=== PATIENT | male | born 1980 | race Caucasian/White ===

== ENCOUNTER 2025-02-24 20:47 | Inpatient (IN) | payer SELFPAY ==
[2025-02-24] VITALS (13 sets, daily range): BP systolic 128–154; BP diastolic 82–93; PULSE 108–126; RESP 15–41; TEMP 36.6–37.8; O2SAT 94–99; BMI 38.2
--- NOTE | 2025-02-24 21:27 | DI.RAD.S_ITS ---
PROCEDURE: XR CHEST 1V INDICATIONS: potential sepsis TECHNIQUE: One view of the chest was acquired. COMPARISON: None. FINDINGS: Surgical changes and devices: None. Lungs and pleura: Lungs are clear. No pleural effusions or pneumothorax. Mediastinum: Mediastinal contours appear normal. Heart size is normal. Bones and chest wall: No suspicious bony lesions. Overlying soft tissues appear unremarkable. IMPRESSION: No acute cardiopulmonary abnormality is seen. Approved by: Viridiana Hogan M.D.,Ph.D. on 02/24/2025 at 23:47
[2025-02-24] MEDS: SODIUM CHLORIDE 0.9% 1451.5 ML IV (21:34)
[2025-02-24 21:36] LABS: Alanine Aminotransferase 32 IU/L (<50); Albumin 3.9 g/dL (3.5-5.0); Albumin Globulin Ratio 0.9 (1.0-2.8); Alkaline Phosphatase 82 U/L (38-126); Blood Urea Nitrogen 9 mg/dL (9-20); Calcium 7.7 mg/dL (8.4-10.2); Carbon Dioxide 18 mmol/L (22-32); Chloride 99 mmol/L (98-107); Estimated Glomerular Filt Rate > 60 mL/min (>60); Globulin 4.3 g/dL (1.7-4.1); Glucose 274 mg/dL (70-99); Potassium 3.9 mmol/L (3.4-5.1); Sodium 134 mmol/L (137-145); Total Protein 8.2 g/dL (6.3-8.2)
[2025-02-24 21:45] LABS: Add Manual Diff / Slide Review NO; Hematocrit 48.1 % (41-53); Hemoglobin 16.2 g/dL (13.5-17.5); Lymphocytes Absolute Auto 1900 /uL (1100-4500); Mean Corpuscular HGB Conc 33.7 % (30-36); Mean Corpuscular Hemoglobin 29.8 PG (26-34); Mean Corpuscular Volume 88.4 fL (80-100); Platelet Count 265 X10^3/uL (150-400)
--- NOTE | 2025-02-24 21:52 | ED_ITS ---
HPI - Abdominal Pain General Chief Complaint: Abdominal Pain Stated Complaint: abd pain, N/V/D Time Seen by Provider: 02/24/25 20:57 Source: patient Mode of arrival: Ambulatory History of Present Illness HPI narrative: 45-year-old male with left upper quadrant pain since yesterday, flu from [place] to visit family here in [facility] yesterday, also recent cough, loose stools, single episode of vomiting, no longer nauseated, no black or red stools. No painful or frequent urination. No exposure to persons with recent upper respiratory or GI symptoms in home misery area. No recent antibiotic exposure. No injury trauma new activities. Related Data Home Medications ?Medication ?Instructions ?Recorded ?Confirmed No Known Home Medications 02/25/2501/15 Allergies Allergy/AdvReac Type Severity Reaction Status Date / Time No Known Drug Allergies Allergy Verified 02/24/25 20:53 Patient History Social History household members: none Smoking Status: Former smoker Smoking Status: Former smoker Exam Narrative Exam Narrative: GENERAL: Well-developed patient, in mild distress. HEAD: Atraumatic. Normocephalic. EYES: Pupils equal round and reactive. Extraocular motions intact. No scleral icterus. No injection or drainage. ENT: Nose without bleeding, purulent drainage. Throat without erythema, tonsillar hypertrophy or exudate. Airway patent. NECK: Trachea midline. Non tender CARDIOVASCULAR: Regular rate and rhythm without murmurs, gallops, or rubs. RESPIRATORY: Clear to auscultation. Breath sounds equal bilaterally. No wheezes, rales, or rhonchi. GASTROINTESTINAL: Abdomen soft, non-tender, nondistended. EXTREMITIES: No edema or joint tenderness. BACK: Nontender without deformity or crepitance. No flank tenderness. NEURO: AOx3. Motor functions grossly nonfocal. SKIN: No rash or erythema of visible areas Initial Vital Signs Initial Vital Signs: Vital Signs Temperature 97.8 F 02/24/25 20:49 Pulse Rate 126 H 02/24/25 20:49 Respiratory Rate 26 H 02/24/25 20:49 Blood Pressure 144/93 H 02/24/25 20:49 Pulse Oximetry 99 02/24/25 20:49 Oxygen Delivery Method Room Air 02/24/25 20:49 Course Orders Ordered: ED Orders 02/24/25 22:05 CT abdomen pelvis w con Stat GI Panel (Film Array) Stat 02/24/25 22:36 A1C [Hemoglobin A1C% w Est Avg Glu] Stat Lactate (Lactic Acid) Stat 02/25/25 00:37 Consult to Dietitian, Adult Routine 02/25/25 06:00 Complete Blood Count AUTO DIFF DAILY Comprehensive Metabolic Panel DAILY Acetaminophen (Acetaminophen 325 Mg Tablet) 650 mg PO Q6H PRN PRN Reason: Fever/Mild Pain (1-3) Hydrocodone Bitart/Acetaminophen (Hydrocodone/Acet 5/325 Tablet) 1 tab PO Q4H PRN PRN Reason: Pain, Moderate (4-6) Folic Acid (Folic Acid 1 Mg Tablet) 1 mg PO DAILY MARGARITO Hydromorphone HCl (Hydromorphone Hcl 0.5 Mg/0.5 Ml Syringe) 1 mg IV Q3H PRN PRN Reason: Pain, Severe (7-10) Last Admin: 02/25/25 05:21 Dose: 1 mg Documented By: Admin: 02/25/25 02:12 Dose: 1 mg Documented By: SR Sodium Chloride (Normal Saline 0.9%) 1,000 mls @ 175 mls/hr IV CONT MARGARITO Last Admin: 02/25/25 06:42 Dose: 175 mls/hr Documented By: Infusion: 02/25/25 06:42 Dose: Infused Documented By: Admin: 02/25/25 01:25 Dose: 175 mls/hr Documented By: Dextrose (D10w) 100 mls @ 999 mls/hr IV PRN PRN PRN Reason: Hypoglycemia Insulin Human Lispro (Insulin Lispro 100 Unit/Ml 3ml Vial) 0 unit SUBCUT Q6H MARGARITO; Protocol Last Admin: 02/25/25 03:21 Dose: 2 unit Documented By: SR Co-signed By: DENNIS Lorazepam (Lorazepam 2 Mg/Ml Inj) 0 mg IV CIWAPRN PRN; Protocol PRN Reason: Alcohol Withdrawal Lorazepam (Lorazepam 1 Mg Tablet) 0 mg PO CIWAPRN PRN; Protocol PRN Reason: Alcohol Withdrawal Multivitamins (Multivitamin 1 Tablet) 1 tab PO DAILY MARGARITO Naloxone HCl (Naloxone 0.4 Mg/Ml Vial) 0.2 mg IV Q2MIN PRN PRN Reason: Opiate Reversal Ondansetron HCl (Ondansetron 4 Mg/2 Ml Inj) 4 mg IV Q8HR PRN PRN Reason: Nausea And Vomiting Ondansetron HCl (Ondansetron 4 Mg/2 Ml Inj) 4 mg IV Q6HR PRN PRN Reason: Nausea And Vomiting Discontinued Medications Hydromorphone HCl (Hydromorphone Hcl 0.5 Mg/0.5 Ml Syringe) 0.5 mg IV NOW ONE Stop: 02/24/25 22:07 Last Admin: 02/24/25 22:14 Dose: 0.5 mg Documented By: DARYL Hydromorphone HCl (Hydromorphone 1 Mg Inj) 1 mg IV NOW ONE Stop: 02/24/25 23:46 Last Admin: 02/24/25 23:59 Dose: 1 mg Documented By: LIZET Sodium Chloride (Normal Saline 0.9%) 4,354.5 mls @ 1,451.5 mls/hr 30 ml/kg infuse over 3 hr (4354.5 ml) IV NOW ONE Stop: 02/25/25 00:20 Last Infusion: 02/25/25 01:10 Dose: Infused Documented By: Admin: 02/24/25 21:34 Dose: 1,451.5 mls/hr Documented By: MILLI Ondansetron HCl (Ondansetron 4 Mg/2 Ml Inj) 4 mg IV NOW PRN PRN Reason: Nausea And Vomiting Last Admin: 02/24/25 21:53 Dose: 4 mg Documented By: MILLI Ondansetron HCl (Ondansetron 4 Mg/2 Ml Inj) 4 mg IV NOW ONE Stop: 02/24/25 22:07 Last Admin: 02/24/25 22:14 Dose: Not Given Documented By: DARYL Vital Signs Vital signs: Vital Signs - 8 hr 02/24/25 23:00 02/24/25 23:00 02/24/25 23:30 Pulse Rate 119 H 121 H Respiratory Rate 37 H 22 Blood Pressure 133/85 Pulse Oximetry 94 95 Oxygen Delivery Method Room Air Room Air 02/24/25 23:31 02/24/25 23:31 02/25/25 00:00 Pulse Rate 120 H 121 H Respiratory Rate 15 29 H Blood Pressure 138/89 Pulse Oximetry 97 96 Oxygen Delivery Method Room Air Room Air 02/25/25 00:00 02/25/25 00:30 02/25/25 00:30 Pulse Rate 123 H Respiratory Rate 36 H Blood Pressure 138/85 130/72 Pulse Oximetry 92 Oxygen Delivery Method Room Air MDM - Abdominal Pain Lab Data Attestation: I reviewed the patient's lab results. Lab results narrative: White blood cell count 22451, hemoglobin 16.2, platelets adequate. Glucose 274. Serum CO2 18. Sodium 134, potassium 3.9. BUN 9 with creatinine 0.76 normal renal function. Liver functions normal. Lipase 54815 elevated. Lactate 1.4 normal. Urinalysis without obvious infection. Hemoglobin A1c 9.3 elevated. COVID RSV flu swab negative. 02/24/25 21:13 02/24/25 21:13 Labs: Lab Results 02/24/25 02/24/25 02/24/25 Range/Units 21:13 21:35 22:36 WBC 19.5 H (4.5-11.0) X10^3/uL RBC 5.44 (4.5-5.9) X10^6/uL Hgb 16.2 (13.5-17.5) g/dL Hct 48.1 (41-53) % MCV 88.4 (80-100) fL MCH 29.8 (26-34) PG MCHC 33.7 (30-36) % RDW 13.5 (11.6-14.8) % Plt Count 265 (150-400) X10^3/uL Neut % (Auto) 85.9 H (50-75) % Lymph % (Auto) 9.8 L (25-40) % [place] % (Auto) 3.5 (3-14) % Eos % (Auto) 0.2 L (2-4) % Baso % (Auto) 0.6 (0-2) % Neut # (Auto) 64092 H (7503-0418) /uL Lymph # (Auto) 1900 (1823-8101) /uL [place] # (Auto) 700 (0-900) /uL Eos # (Auto) 0 (0-450) /uL Baso # (Auto) 100 (0-100) /uL Sodium 134 L (137-145) mmol/L Potassium 3.9 (3.4-5.1) mmol/L Chloride 99 (98-107) mmol/L Carbon Dioxide 18 L (22-32) mmol/L BUN 9 (9-20) mg/dL Creatinine 0.76 (0.66-1.25) mg/dL Estimated GFR > 60 (>60) mL/min BUN/Creatinine Ratio 11.8 (6-22) Glucose 274 H (70-99) mg/dL Hemoglobin A1c 9.3 H (4.0-6.0) % Lactate 1.4 (0.7-2.1) mmol/L Calcium 7.7 L (8.4-10.2) mg/dL Total Bilirubin 1.1 (0.2-1.3) mg/dL AST 35 (17-59) IU/L ALT 32 (<50) IU/L Alkaline Phosphatase 82 (38-126) U/L Total Protein 8.2 (6.3-8.2) g/dL Albumin 3.9 (3.5-5.0) g/dL Globulin 4.3 H (1.7-4.1) g/dL Albumin/Globulin Ratio 0.9 L (1.0-2.8) Lipase 74251 H (23-300) U/L Procalcitonin 0.198 (<0.5) ng/mL Urine Color Yellow Urine Appearance Clear Urine pH 5.5 (4.5-8.0) Ur Specific [place] 1.025 (1.000-1.035) Urine Protein 1+ H (Negative) Urine Glucose (UA) 3+ H (Negative) g/dL Urine Ketones 3+ H (NEGATIVE) Urine Occult Blood 1+ H (Negative) Urine Nitrate Negative (Negative) Urine Bilirubin 1+ H (NEGATIVE) Ur Bilirubin Confirm Negative (Negative) Urine Urobilinogen 0.2 (0.2) E.U./dL Ur Leukocyte Esterase Negative (NEGATIVE) Urine RBC 5-10/hpf H (0-5/HPF) Urine WBC None seen (0-5/HPF) Ur Squamous Epith Cells 0-1 /hpf (0-5/HPF) Ur Transition Epith Cell 0-1/hpf (0-5/HPF) Urine Bacteria Occasional (0-1) (None) Hyaline Casts 0-1/lpf (None) Ur Culture Indicated? Cult not indicated Vol Urine Centrifuged 10ml (spun) SARS-CoV-2 (PCR) Negative (Negative) Influenza A (RT-PCR) Flu a negative (NEGATIVE) Influenza B (RT-PCR) Flu b negative (NEGATIVE) RSV (PCR) Negative (Negative) MDM Narrative Medical decision making narrative: 45-year-old male with history of diabetes, with left upper quadrant abdominal pain since yesterday, occasional alcohol use with last drink last week, no injury or trauma. Obese, BMI 38.2 noted. Low-grade fever with tachycardia, sirs screen positive, labs sent. Blood culture sent, ordered. Epigastric left upper quadrant tenderness mild. Chest x-ray, labs pending including urinalysis. And COVID/influenza. IV Dilaudid/Zofran. Lab data: White blood cell count 14493, hemoglobin 16.2, platelets adequate. Glucose 274. Serum CO2 18. Sodium 134, potassium 3.9. BUN 9 with creatinine 0.76 normal renal function. Liver functions normal. Lipase 13546 elevated. Lactate 1.4 normal. Urinalysis without obvious infection. Hemoglobin A1c 9.3 elevated. COVID RSV flu swab negative. Lipase elevated, renal function adequate. Liver functions normal noted. CT abdomen and pelvis with IV contrast ordered. Pain mildly improved, then increased again, repeat dose Dilaudid. Keep NPO. CT abdomen and pelvis shows mild peripancreatic inflammatory change. No mention of any pseudocyst or emphysema or phlegmonous change. See radiology report. Keep NPO, IV fluids, hold antibiotics for now, inflammatory changes likely due to pancreatitis, history of alcohol with last drink last week, otherwise no biliary obstruction seems obvious, no gallstones known. 2355, will page hospitalist for admission. 0030, case discussed with hospitalist Dr. Rangel who accepts patient for admission. Critical Care Time Critical Care Time Critical Care Time: Yes Total Critical Care Time: 35 Attestation: The high probability of a clinically significant, sudden or life threatening deterioration of the [gastrointestinal, abdominopelvic] system(s) required my full and direct attention, intervention and personal management. The aggregate critical care time was [35] minutes. This time is in addition to time spent performing reported procedures but includes the following: [x] Data Review and interpretation [x] Patient assessment and monitoring of vital signs [x] Documentation [x] Medication orders and management Discharge Plan Departure Patient Disposition: Admitted As Inpatient Clinical Impression: Pancreatitis Admit Date/Time: 02/25/25 00:46 Admit Provider: Ludwig Rangel
[2025-02-24 21:53] LABS: Appearance Urine UA CLEAR; Bilirubin Urine UA 1+ (NEGATIVE); Color Urine UA YELLOW; Glucose Urine UA 3+ g/dL (Negative); Ketones Urine UA 3+ (NEGATIVE); Leukocyte Esterase Urine UA NEGATIVE (NEGATIVE); Nitrite Urine UA NEGATIVE (Negative); Occult Blood Urine UA 1+ (Negative); Protein Urine UA 1+ (Negative); Specific Gravity Urine UA 1.025 (1.000-1.035); Urobilinogen Urine UA 0.2 E.U./dL (0.2); pH Urine UA 5.5 (4.5-8.0)
[2025-02-24] MEDS: ONDANSETRON 4 MG/2 ML INJ IV (21:53)
[2025-02-24 22:00] LABS: Lipase 11633 U/L (23-300)
[2025-02-24 22:03] LABS: Procalcitonin 0.198 ng/mL (<0.5)
--- NOTE | 2025-02-24 22:05 | DI.CT.S_ITS ---
PROCEDURE: CT ABDOMEN PELVIS W CON INDICATIONS: abd pain PUQ, lipase 11k, LFTs okay TECHNIQUE: After the administration of intravenous contrast, axial sections acquired from the lung bases to the pubic symphysis. Coronal and sagittal reformats were performed. For radiation dose reduction, the following was used: automated exposure control, adjustment of mA and/or kV according to patient size. COMPARISON: None. FINDINGS: Image quality: Diagnostic. Lower Chest: No significant findings. ABDOMEN: Liver: No solid mass. Gallbladder: Surgically absent Biliary ducts: No biliary dilation. Pancreas: Marked peripancreatic inflammation consistent with acute pancreatitis. No peripancreatic fluid collection. Inflammation involves the adjacent duodenum. No evidence of hypoenhancement to suggest necrosis. Spleen: Size is within normal limits. Adrenal Glands: No adrenal nodules. Kidneys and Ureters: No hydronephrosis. No solid mass. No complex renal cystic lesion which requires follow up. Stomach and Bowel: Normal colonic caliber, without significant wall thickening. Peritoneum: No abnormal intraperitoneal fluid. No free air. Ventral Wall: No significant ventral hernia. Abdominal Nodes: No retroperitoneal or mesenteric adenopathy by size criteria. Vessels: Aorta and inferior vena cava are normal in size. PELVIS: Pelvic Organs: Unremarkable. Bladder: No bladder wall thickening, accounting for underdistention. Pelvic Nodes: No enlarged lymph nodes. Miscellaneous: No inguinal hernias are seen. Bones: No aggressive osseous abnormality. IMPRESSION: Marked peripancreatic inflammation consistent with acute pancreatitis. No peripancreatic fluid collection. No evidence of necrosis. Approved by: Viridiana Hogan M.D.,Ph.D. on 02/24/2025 at 23:51
[2025-02-24 22:10] LABS: Culture Indicated Urine Cult Not Indicated; Ictotest Urine Negative (Negative)
[2025-02-24 22:20] LABS: HEMOLYSIS 45 (0-50)
[2025-02-24 22:39] LABS: Influenza A - CEPHEID Flu A NEGATIVE (NEGATIVE); Influenza B - CEPHEID Flu B NEGATIVE (NEGATIVE)
[2025-02-24 22:41] LABS: COVID-19 CEPHEID 4-PLEX PCR Negative (Negative)
[2025-02-24 22:53] LABS: Lactate (Lactic Acid) 1.4 mmol/L (0.7-2.1)
[2025-02-24 23:13] LABS: Hemoglobin A1C% w Est Avg Glu 9.3 % (4.0-6.0)
[2025-02-24] MEDS: HYDROMORPHONE 1 MG INJ IV (23:59)
[2025-02-25] VITALS (15 sets, daily range): BP systolic 120–144; BP diastolic 61–94; PULSE 119–139; RESP 16–36; TEMP 36.1–37.6; O2SAT 91–97; BMI 38.1
[2025-02-25] MEDS: SODIUM CHLORIDE 0.9% 1,000 ML 175 ML IV ×4 (01:25→21:13)
[2025-02-25] MEDS: INSULIN LISPRO 100 UNIT/ML 3ML VIAL SUBCUT ×3 (03:21→15:16)
--- NOTE | 2025-02-25 04:23 | PM.HP.1 ---
History of Present Illness History of Present Illness Date Patient Seen: 02/25/25 Time Patient Seen: 00:12 Chief complaint: abd pain, N/V/D Narrative: 42-year-old male with past medical history of alcohol abuse presents with complaint of abdominal pain. Per the patient's report, the patient does admit to drinking alcohol about 4-5 drinks a few times per week. The patient last alcohol intake was about 3 days ago. The patient states that starting yesterday the patient started to have left upper quadrant sharp abdominal pain. The patient also has some mild loose stool but denies any blood. The patient also have some nausea and vomiting associated with pain but denies any recent fever, chills, chest pain, dysuria shortness of breath. The patient denies any known history of gallstones or prior history of pancreatitis. In our emergency room, the patient was hemodynamically stable. Labs showed WBC of 19 glucose of 274 and lipase of 11,000. The patient has a normal lactic acid. UA was negative. Chest x-ray also was negative. CT scan of the abdomen shows signs of acute pancreatitis without necrotizing necrosis or abscess. The patient did IV Dilaudid for pain. IV fluids given.. Antibiotic initiated including due to concern of sepsis. PFSH Social History household members: none Smoking Status: Former smoker Meds Home Medications and Allergies Allergies Allergy/AdvReac Type Severity Reaction Status Date / Time No Known Drug Allergies Allergy Verified 02/24/25 20:53 Review of Systems Review of Systems ROS: Yes All systems reviewed with the patient and are negative except as otherwise documented Exam Vital Signs (past 8 hours): - 02/24/25 20:49 02/24/25 21:06 02/24/25 21:09 Temperature 97.8 F Pulse Rate 126 H 111 H Respiratory Rate 26 H Blood Pressure 144/93 H 154/93 H Pulse Oximetry 99 98 Oxygen Delivery Method Room Air Oxygen Flow Rate 02/24/25 21:09 02/24/25 21:18 02/24/25 21:30 Temperature 100.1 F H Pulse Rate 114 H 120 H Respiratory Rate 33 H 41 H Blood Pressure Pulse Oximetry 95 95 Oxygen Delivery Method Room Air Oxygen Flow Rate 02/24/25 21:40 02/24/25 21:40 02/24/25 22:00 Temperature Pulse Rate 113 H 110 H Respiratory Rate 38 H 31 H Blood Pressure 145/88 H Pulse Oximetry 96 97 Oxygen Delivery Method Room Air Oxygen Flow Rate 02/24/25 22:14 02/24/25 22:14 02/24/25 22:31 Temperature Pulse Rate 108 H 112 H Respiratory Rate 40 H Blood Pressure 141/85 H Pulse Oximetry 96 94 Oxygen Delivery Method Oxygen Flow Rate 02/24/25 22:38 02/24/25 22:38 02/24/25 23:00 Temperature Pulse Rate 113 H Respiratory Rate Blood Pressure 128/82 133/85 Pulse Oximetry 94 Oxygen Delivery Method Oxygen Flow Rate 02/24/25 23:00 02/24/25 23:30 02/24/25 23:31 Temperature Pulse Rate 119 H 121 H 120 H Respiratory Rate 37 H 22 15 Blood Pressure Pulse Oximetry 94 95 97 Oxygen Delivery Method Room Air Room Air Room Air Oxygen Flow Rate 02/24/25 23:31 02/25/25 00:00 02/25/25 00:00 Temperature Pulse Rate 121 H Respiratory Rate 29 H Blood Pressure 138/89 138/85 Pulse Oximetry 96 Oxygen Delivery Method Room Air Oxygen Flow Rate 02/25/25 00:30 02/25/25 00:30 02/25/25 01:26 Temperature 98.7 F Pulse Rate 123 H 119 H Respiratory Rate 36 H 16 Blood Pressure 130/72 144/79 H Pulse Oximetry 92 94 Oxygen Delivery Method Room Air Oxygen Flow Rate 0 Oxygen Delivery Method Room Air Oxygen Flow Rate 0 Narrative Exam Narrative: Physical Exam: GENERAL: The patient is not in any acute distressed. Awake and alert. HEENT: Nonicteric sclerae, PERRLA, EOMI. Oropharynx clear. Moist mucous membranes. Conjunctivae appear well perfused. HEART: Regular rate and rhythm without murmurs. No lower extremities edema. LUNGS: Clear to auscultation bilaterally. No wheezing, crackles or rhonchi ABDOMEN: Soft, positive bowel sounds, nontender. SKIN: No rash, no excessive bruising, petechiae, or purpura. NEUROLOGIC: AxO x 3. Cranial nerves II-XII intact without motor/sensory deficit. Objective Labs 02/24/25 21:13 02/24/25 21:13 Labs: Laboratory Results - last 24 hr 02/24/25 02/24/25 02/24/25 21:13 21:35 22:36 WBC 19.5 H RBC 5.44 Hgb 16.2 Hct 48.1 MCV 88.4 MCH 29.8 MCHC 33.7 RDW 13.5 Plt Count 265 Neut % (Auto) 85.9 H Lymph % (Auto) 9.8 L [place] % (Auto) 3.5 Eos % (Auto) 0.2 L Baso % (Auto) 0.6 Neut # (Auto) 02031 H Lymph # (Auto) 1900 [place] # (Auto) 700 Eos # (Auto) 0 Baso # (Auto) 100 Sodium 134 L Potassium 3.9 Chloride 99 Carbon Dioxide 18 L BUN 9 Creatinine 0.76 Estimated GFR > 60 BUN/Creatinine Ratio 11.8 Glucose 274 H POC Whole Bld Glucose Hemoglobin A1c 9.3 H Lactate 1.4 Calcium 7.7 L Total Bilirubin 1.1 AST 35 ALT 32 Alkaline Phosphatase 82 Total Protein 8.2 Albumin 3.9 Globulin 4.3 H Albumin/Globulin Ratio 0.9 L Lipase 41176 H Procalcitonin 0.198 Urine Color Yellow Urine Appearance Clear Urine pH 5.5 Ur Specific [place] 1.025 Urine Protein 1+ H Urine Glucose (UA) 3+ H Urine Ketones 3+ H Urine Occult Blood 1+ H Urine Nitrate Negative Urine Bilirubin 1+ H Ur Bilirubin Confirm Negative Urine Urobilinogen 0.2 Ur Leukocyte Esterase Negative Urine RBC 5-10/hpf H Urine WBC None seen Ur Squamous Epith Cells 0-1 /hpf Ur Transition Epith Cell 0-1/hpf Urine Bacteria Occasional (0-1) Hyaline Casts 0-1/lpf Ur Culture Indicated? Cult not indicated Vol Urine Centrifuged 10ml (spun) SARS-CoV-2 (PCR) Negative Influenza A (RT-PCR) Flu a negative Influenza B (RT-PCR) Flu b negative RSV (PCR) Negative 02/25/25 02:20 WBC RBC Hgb Hct MCV MCH MCHC RDW Plt Count Neut % (Auto) Lymph % (Auto) [place] % (Auto) Eos % (Auto) Baso % (Auto) Neut # (Auto) Lymph # (Auto) [place] # (Auto) Eos # (Auto) Baso # (Auto) Sodium Potassium Chloride Carbon Dioxide BUN Creatinine Estimated GFR BUN/Creatinine Ratio Glucose POC Whole Bld Glucose 266 H Hemoglobin A1c Lactate Calcium Total Bilirubin AST ALT Alkaline Phosphatase Total Protein Albumin Globulin Albumin/Globulin Ratio Lipase Procalcitonin Urine Color Urine Appearance Urine pH Ur Specific [place] Urine Protein Urine Glucose (UA) Urine Ketones Urine Occult Blood Urine Nitrate Urine Bilirubin Ur Bilirubin Confirm Urine Urobilinogen Ur Leukocyte Esterase Urine RBC Urine WBC Ur Squamous Epith Cells Ur Transition Epith Cell Urine Bacteria Hyaline Casts Ur Culture Indicated? Vol Urine Centrifuged SARS-CoV-2 (PCR) Influenza A (RT-PCR) Influenza B (RT-PCR) RSV (PCR) Assessment & Plan Assessment & Plan narrative: Acute pancreatitis. Likely related to underlying alcohol abuse. Admit the patient to medical telemetry as inpatient. Continue n.p.o. IV fluid and IV Dilaudid. With bilirubin and LFTs are normal. Alcohol abuse. Placed patient on CIWA protocol. Last drink was 3 days ago. Leukocytosis. Again could be from acute pancreatitis. No signs of infection. Afebrile. Monitor for now. Hyperglycemia. Glucose in the 200s. No prior history of reported diabetes. Will check A1c. Will give subcu insulin for now. Will need to follow-up outpatient for possible diabetic management. DVT prophylaxis SCDs and early ambulation. CODE STATUS full code. Disposition likely home in 2 to 3 days - As the provider of this telehealth evaluation, requested by the patient's evaluating physician, I attest that I introduced myself to the patient, provided my credentials and determined that telemedicine via a real-time, 2 way interactive audio and video platform is an appropriate and effective means of providing this service. - I reviewed the patient's chart and had a discussion with the member of the patient's treatment team. - The patient and I mutually agreed with continuation of this evaluation via telemedicine. The patient consented for the telemedicine evaluation. - This virtual encounter was taken place from [place] by Dr. Ludwig Rangel. The patient was evaluated at [facility]. The encounter was approximately 35 minutes. The nurse was present during the entire time of the encounter and was able to move the stethoscope in appropriate directions. Time-Based Coding :: [TOTAL MINUTES] spent with patient and on the chart (including review of chart, obtaining history, exam, reviewing outside data, placing orders, documenting exam and treatment plan, and counseling patient) on [DATE].
--- NOTE | 2025-02-25 07:29 | PM.PN.1 ---
Subjective Subjective Date Patient Seen: 02/25/25 Interval history: He tells me that this is his 1st episode of pancreatitis. The Zofran has not been completely successful for his nausea so metoclopramide will be added. He asks for ice chips to be permitted and that will be done. 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 The lipase yesterday was 11,633. The A1c is 9.3. The BMP is normal. The white blood count is 19.5. The blood pressure is 133/94 with a heart rate as high as 119. Exam Vital Signs (past 8 hours): - 02/24/25 23:30 02/24/25 23:31 02/24/25 23:31 Temperature Pulse Rate 121 H 120 H Respiratory Rate 22 15 Blood Pressure 138/89 Pulse Oximetry 95 97 Oxygen Delivery Method Room Air Room Air Oxygen Flow Rate 02/25/25 00:00 02/25/25 00:00 02/25/25 00:30 Temperature Pulse Rate 121 H Respiratory Rate 29 H Blood Pressure 138/85 130/72 Pulse Oximetry 96 Oxygen Delivery Method Room Air Oxygen Flow Rate 02/25/25 00:30 02/25/25 01:26 02/25/25 05:13 Temperature 98.7 F Pulse Rate 123 H 119 H 119 H Respiratory Rate 36 H 16 18 Blood Pressure 144/79 H 133/94 H Pulse Oximetry 92 94 97 Oxygen Delivery Method Room Air Oxygen Flow Rate 0 0 Oxygen Delivery Method Room Air Oxygen Flow Rate 0 Narrative Exam Narrative: Alert and oriented x3. Appears to be in moderate abdominal pain and nausea distress. Heart is regular rate and rhythm without murmur Lungs are clear to auscultation bilaterally Abdomen is obese, nontender, no organomegaly. Extremities have no ankle edema. Objective Labs 02/25/25 10:10 02/25/25 10:10 Labs: Laboratory Results - last 24 hr 02/24/25 02/24/25 02/24/25 21:13 21:35 22:36 WBC 19.5 H RBC 5.44 Hgb 16.2 Hct 48.1 MCV 88.4 MCH 29.8 MCHC 33.7 RDW 13.5 Plt Count 265 Neut % (Auto) 85.9 H Lymph % (Auto) 9.8 L [place] % (Auto) 3.5 Eos % (Auto) 0.2 L Baso % (Auto) 0.6 Neut # (Auto) 56447 H Lymph # (Auto) 1900 [place] # (Auto) 700 Eos # (Auto) 0 Baso # (Auto) 100 Sodium 134 L Potassium 3.9 Chloride 99 Carbon Dioxide 18 L BUN 9 Creatinine 0.76 Estimated GFR > 60 BUN/Creatinine Ratio 11.8 Glucose 274 H POC Whole Bld Glucose Hemoglobin A1c 9.3 H Lactate 1.4 Calcium 7.7 L Total Bilirubin 1.1 AST 35 ALT 32 Alkaline Phosphatase 82 Total Protein 8.2 Albumin 3.9 Globulin 4.3 H Albumin/Globulin Ratio 0.9 L Lipase 62091 H Procalcitonin 0.198 Urine Color Yellow Urine Appearance Clear Urine pH 5.5 Ur Specific [place] 1.025 Urine Protein 1+ H Urine Glucose (UA) 3+ H Urine Ketones 3+ H Urine Occult Blood 1+ H Urine Nitrate Negative Urine Bilirubin 1+ H Ur Bilirubin Confirm Negative Urine Urobilinogen 0.2 Ur Leukocyte Esterase Negative Urine RBC 5-10/hpf H Urine WBC None seen Ur Squamous Epith Cells 0-1 /hpf Ur Transition Epith Cell 0-1/hpf Urine Bacteria Occasional (0-1) Hyaline Casts 0-1/lpf Ur Culture Indicated? Cult not indicated Vol Urine Centrifuged 10ml (spun) SARS-CoV-2 (PCR) Negative Influenza A (RT-PCR) Flu a negative Influenza B (RT-PCR) Flu b negative RSV (PCR) Negative 02/25/25 02:20 WBC RBC Hgb Hct MCV MCH MCHC RDW Plt Count Neut % (Auto) Lymph % (Auto) [place] % (Auto) Eos % (Auto) Baso % (Auto) Neut # (Auto) Lymph # (Auto) [place] # (Auto) Eos # (Auto) Baso # (Auto) Sodium Potassium Chloride Carbon Dioxide BUN Creatinine Estimated GFR BUN/Creatinine Ratio Glucose POC Whole Bld Glucose 266 H Hemoglobin A1c Lactate Calcium Total Bilirubin AST ALT Alkaline Phosphatase Total Protein Albumin Globulin Albumin/Globulin Ratio Lipase Procalcitonin Urine Color Urine Appearance Urine pH Ur Specific [place] Urine Protein Urine Glucose (UA) Urine Ketones Urine Occult Blood Urine Nitrate Urine Bilirubin Ur Bilirubin Confirm Urine Urobilinogen Ur Leukocyte Esterase Urine RBC Urine WBC Ur Squamous Epith Cells Ur Transition Epith Cell Urine Bacteria Hyaline Casts Ur Culture Indicated? Vol Urine Centrifuged SARS-CoV-2 (PCR) Influenza A (RT-PCR) Influenza B (RT-PCR) RSV (PCR) PFSH Social History household members: none Smoking Status: Former smoker Assessment & Plan Assessment & Plan narrative: Acute pancreatitis. Likely related to underlying alcohol abuse. Advance diet to NPO with ice chips, continue IV fluid and IV Dilaudid. Add metoclopramide for nausea. Alcohol abuse. Continue CIWA protocol. Last drink was 3 days before admission. Leukocytosis. Again could be from acute pancreatitis. No signs of infection. Afebrile. Monitor for now. Hyperglycemia. Glucose in the 200s. No prior history of reported diabetes. 9.3 A1c. Using subcu insulin and will add Glargine 10 units HS. Will need to follow-up outpatient for possible diabetic management. DVT prophylaxis SCDs and early ambulation. CODE STATUS full code. Disposition likely home in 2 to 3 days Time-Based Coding :: [TOTAL MINUTES] spent with patient and on the chart (including review of chart, obtaining history, exam, reviewing outside data, placing orders, documenting exam and treatment plan, and counseling patient) on [DATE].
[2025-02-25] MEDS: ONDANSETRON 4 MG/2 ML INJ IV ×2 (07:35→18:56)
[2025-02-25] MEDS: METOCLOPRAMIDE 10 MG/2 ML INJ IV (09:54)
[2025-02-25 10:23] LABS: Add Manual Diff / Slide Review NO; Hematocrit 48.6 % (41-53); Hemoglobin 17.3 g/dL (13.5-17.5); Lymphocytes Absolute Auto 1300 /uL (1100-4500); Mean Corpuscular HGB Conc 35.6 % (30-36); Mean Corpuscular Hemoglobin 31.5 PG (26-34); Mean Corpuscular Volume 88.6 fL (80-100); Platelet Count 243 X10^3/uL (150-400)
[2025-02-25 10:40] LABS: Alanine Aminotransferase 28 IU/L (<50); Albumin 3.3 g/dL (3.5-5.0); Albumin Globulin Ratio 1.1 (1.0-2.8); Alkaline Phosphatase 60 U/L (38-126); Blood Urea Nitrogen 9 mg/dL (9-20); Carbon Dioxide 17 mmol/L (22-32); Chloride 108 mmol/L (98-107); Estimated Glomerular Filt Rate > 60 mL/min (>60); Globulin 3.0 g/dL (1.7-4.1); Glucose 299 mg/dL (70-99); Potassium 4.3 mmol/L (3.4-5.1); Sodium 136 mmol/L (137-145); Total Protein 6.3 g/dL (6.3-8.2)
[2025-02-25 11:05] LABS: HEMOLYSIS 120 (0-50)
[2025-02-25 11:08] LABS: Calcium 6.0 mg/dL (8.4-10.2)
[2025-02-25 11:21] LABS: Triglycerides 3673 mg/dL (35-150)
--- NOTE | 2025-02-25 13:27 | CM.DANOTE ---
B DCP Assessment note pt is a 45yo M admitted with alcohol induced pancreatitis PCP none listed payer [facility] PPO and self pay [employer] UNLOAD[employer] reviewed EMR. per chart review, pt lives in [place] in Apartment alone. reports having a few drinks/week. has nausea/pain and per RN reprot, has had some abnormal labs. per RN, pt has been pretty miserable unless asleep. sleeping during attempted assessment, allowed to rest. per chart, social services designee consult for concerns about pt being able to pay utility bill. CAR UNLOADER printed off local resource information, behind FS. CM team will continue to follow closely for PCP/ financial/ETOH resources as needed. anticipate dc home once medically stable. FREDERICK Wray Discharge Planning/Care Management CM Discharge Assessment Start: 02/25/25 01:15 Freq: Status: Active Protocol: Document 02/25/25 13:26 SL (Rec: 02/25/25 13:27 SL Desktop) Discharge Planning Assessment Assigned Discharge FREDERICK Sousa Service Counselor DPOA/Assigned Allan, . mendoza Garcia Designee Name Contact Information [phone], Advance Directives? No History Provided By Patient Prior Living Apartment/Condo Arrangements Household Members none Independent with ADL Yes 's Is patient alert and Yes oriented? Discharge Plan Home Review Status In Process Please Provide Date 02/25/25 Initial DC Assessment Was Performed Next Review Type Continued Stay Review
[2025-02-25] MEDS: CALCIUM GLUCONATE 9.3 MEQ in SODIUM CHLORIDE 0.9% 50 ML 140 MEQ IV (14:47)
[2025-02-25] MEDS: MULTIVITAMIN 1 TABLET 1 TAB PO (14:47)
[2025-02-25] MEDS: FOLIC ACID 1 MG TABLET PO (14:47)
--- NOTE | 2025-02-25 18:12 | EKG_ITS ---
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
[2025-02-25 18:32] LABS: Hematocrit 49.4 % (41-53); Hemoglobin 17.2 g/dL (13.5-17.5); Mean Corpuscular HGB Conc 34.8 % (30-36); Mean Corpuscular Hemoglobin 30.9 PG (26-34); Mean Corpuscular Volume 88.9 fL (80-100); Platelet Count 253 X10^3/uL (150-400)
[2025-02-25 18:36] LABS: Add Manual Diff / Slide Review YES
[2025-02-25 18:39] LABS: Alanine Aminotransferase 30 IU/L (<50); Albumin 3.7 g/dL (3.5-5.0); Albumin Globulin Ratio 1.0 (1.0-2.8); Alkaline Phosphatase 58 U/L (38-126); Blood Urea Nitrogen 14 mg/dL (9-20); Carbon Dioxide 18 mmol/L (22-32); Chloride 106 mmol/L (98-107); Estimated Glomerular Filt Rate > 60 mL/min (>60); Globulin 3.6 g/dL (1.7-4.1); Glucose 320 mg/dL (70-99); Potassium 4.8 mmol/L (3.4-5.1); Sodium 137 mmol/L (137-145); Total Protein 7.3 g/dL (6.3-8.2)
[2025-02-25 18:57] LABS: HEMOLYSIS 81 (0-50)
[2025-02-25 19:09] LABS: Lactate (Lactic Acid) 3.2 mmol/L (0.7-2.1)
[2025-02-25 19:23] LABS: Calcium 6.4 mg/dL (8.4-10.2)
[2025-02-25 19:29] LABS: TSH w/ Reflex to FT4 1.45 uIU/mL (0.47-4.68)
[2025-02-25] MEDS: PIPERACILLIN/TAZO 4.5 GM in SODIUM CHLORIDE 0.9% 100 ML IV (19:31)
[2025-02-25 19:35] LABS: Band Neutrophils Percent 38.0 % (3-7); Lymphocytes Percent Manual 2.0 % (25-45); Monocytes Percent Manual 4.0 % (2-11); Neutrophils Absolute Manual 17484 /uL (3000-5900); RBC Morphology Normal Morphology; Rouleaux 1+; Segmented Neutrophils Percent 56.0 % (38-70); Total Cells Counted 100
[2025-02-25 20:29] LABS: Reflexed Lactate in 2 Hours Y
[2025-02-25] MEDS: PROCHLORPERAZINE 10 MG/2 ML VIAL IV (21:09)
[2025-02-25] MEDS: INSULIN DRIP PREMIX 100 UNIT/100 ML PLAST..BAG 14.2 UNIT IV (21:21)
[2025-02-25 21:37] LABS: Lactate 2HR (Lactic Acid Rflx) 2.4 mmol/L (0.7-2.1)
[2025-02-26] VITALS (22 sets, daily range): BP systolic 106–157; BP diastolic 53–82; PULSE 116–135; RESP 18–24; TEMP 36.7–39.2; O2SAT 90–126
[2025-02-26] MEDS: SODIUM CHLORIDE 0.9% 1,000 ML 175 ML IV (02:30)
[2025-02-26] MEDS: PIPERACILLIN/TAZO 4.5 GM in SODIUM CHLORIDE 0.9% 100 ML IV ×3 (03:00→18:35)
[2025-02-26] MEDS: INSULIN DRIP PREMIX 100 UNIT/100 ML PLAST..BAG 9 UNIT IV ×2 (04:07→15:19)
[2025-02-26] MEDS: DEXTROSE 5%-0.9% NS 1,000 ML 175 ML IV ×3 (05:14→16:45)
--- NOTE | 2025-02-26 05:27 | PC.NURSE ---
pt resting overnight, c/o abd pain that is relieved with analgesics, mild nausea relieved with compazine, insulin gtt started at start of night, BG ranges 300s to 170s, HR 120-130s at rest, 140s with activity, pt declined use of CPAP overnight, manager combination MD notified of pt's lab values at start of shift, pt states he feels much better this morning, care on going.
[2025-02-26 06:11] LABS: Add Manual Diff / Slide Review NO; Hematocrit 43.6 % (41-53); Hemoglobin 15.0 g/dL (13.5-17.5); Lymphocytes Absolute Auto 1100 /uL (1100-4500); Mean Corpuscular HGB Conc 34.5 % (30-36); Mean Corpuscular Hemoglobin 30.4 PG (26-34); Mean Corpuscular Volume 88.3 fL (80-100); Platelet Count 211 X10^3/uL (150-400)
[2025-02-26 06:13] LABS: MRSA (Nasal) PCR NOT DETECTED (Not Detect)
[2025-02-26 06:25] LABS: Alanine Aminotransferase 25 IU/L (<50); Albumin 3.3 g/dL (3.5-5.0); Albumin Globulin Ratio 1.0 (1.0-2.8); Alkaline Phosphatase 48 U/L (38-126); Blood Urea Nitrogen 19 mg/dL (9-20); Carbon Dioxide 19 mmol/L (22-32); Chloride 110 mmol/L (98-107); Estimated Glomerular Filt Rate > 60 mL/min (>60); Globulin 3.2 g/dL (1.7-4.1); Glucose 179 mg/dL (70-99); Magnesium 1.7 mg/dL (1.6-2.3); Sodium 137 mmol/L (137-145); Total Protein 6.5 g/dL (6.3-8.2)
[2025-02-26 06:28] LABS: HEMOLYSIS 72 (0-50)
[2025-02-26 06:29] LABS: Potassium 4.0 mmol/L (3.4-5.1)
[2025-02-26 06:33] LABS: Calcium 6.1 mg/dL (8.4-10.2)
[2025-02-26 06:37] LABS: Troponin I < 0.012 ng/mL (0.01-0.034)
--- NOTE | 2025-02-26 06:39 | PC.NURSE ---
contact people pt consents to let his mom, sister Briana and Emy receive information
[2025-02-26 06:40] LABS: Triglycerides 1207 mg/dL (35-150)
--- NOTE | 2025-02-26 07:30 | P.PN_ITS ---
Subjective Subjective Date Patient Seen: 02/26/25 Interval history: He seems to have turned the corner last night. At some point the abdominal pain went away and has not returned. The CTA chest today shows left more than right pleural effusions and infiltrates. He had base crackles on the right side on my exam. We will progress him to a full liquid diet. The white blood count dropped from 18.6 down to 16.1. The heart rate continues in the 130s and 140s. The hemoglobin is 15. The D-dimer is 5339. The BMP is normal. The lactic acid level yesterday was 2.4. The TSH was 1.45 and the triglycerides have dropped to 1207 down from 3673 with the insulin drip. His blood sugars continue in the 200s Exam Vital Signs (past 8 hours): - 02/26/25 00:00 02/26/25 01:00 02/26/25 02:00 Pulse Rate 132 H 131 H 133 H Respiratory Rate 18 18 18 Blood Pressure 119/73 126/72 141/68 H Pulse Oximetry 92 92 90 L Oxygen Flow Rate 0 0 02/26/25 03:00 02/26/25 04:00 02/26/25 05:00 Pulse Rate 133 H 135 H 135 H Respiratory Rate 18 18 18 Blood Pressure 129/72 132/73 117/66 Pulse Oximetry 91 91 90 L Oxygen Flow Rate 0 0 0 02/26/25 06:00 Pulse Rate 132 H Respiratory Rate 18 Blood Pressure 117/72 Pulse Oximetry 91 Oxygen Flow Rate 0 Oxygen Delivery Method Room Air Oxygen Flow Rate 0 Narrative Exam Narrative: He is alert and oriented x3. No apparent distress. Heart is tachycardic with a regular rhythm and no murmur. Lungs are notable for right basilar crackles. The abdomen is not tender today. Extremities have no ankle edema Objective Labs 02/26/25 06:00 02/26/25 06:00 Labs: Laboratory Results - last 24 hr 02/25/25 02/25/25 02/25/25 08:43 10:10 15:11 WBC 19.5 H RBC 5.48 Hgb 17.3 Hct 48.6 MCV 88.6 MCH 31.5 MCHC 35.6 RDW 14.0 Plt Count 243 Neut % (Auto) 88.2 H Lymph % (Auto) 6.5 L [place] % (Auto) 4.4 Eos % (Auto) 0.2 L Baso % (Auto) 0.7 Neut # (Auto) 73283 H Lymph # (Auto) 1300 [place] # (Auto) 900 Eos # (Auto) 0 Baso # (Auto) 100 Total Counted Seg Neutrophils % Band Neutrophils % Lymphocytes % (Manual) Monocytes % (Manual) Neutrophils # (Manual) RBC Morphology Rouleaux D-Dimer Sodium 136 L Potassium 4.3 Chloride 108 H Carbon Dioxide 17 L BUN 9 Creatinine 0.89 Estimated GFR > 60 BUN/Creatinine Ratio 10.1 Glucose 299 H POC Whole Bld Glucose 301 H 327 H Lactate Calcium 6.0 L* Magnesium Total Bilirubin 1.1 AST 41 ALT 28 Alkaline Phosphatase 60 Troponin I Total Protein 6.3 Albumin 3.3 L Globulin 3.0 Albumin/Globulin Ratio 1.1 Triglycerides 3673 H TSH Nasal Screen MRSA (PCR) 02/25/25 02/25/25 02/25/25 18:18 19:02 21:00 WBC 18.6 H RBC 5.56 Hgb 17.2 Hct 49.4 MCV 88.9 MCH 30.9 MCHC 34.8 RDW 14.0 Plt Count 253 Neut % (Auto) Not Reportable Lymph % (Auto) Not Reportable [place] % (Auto) Not Reportable Eos % (Auto) Not Reportable Baso % (Auto) Not Reportable Neut # (Auto) Lymph # (Auto) Not Reportable [place] # (Auto) Not Reportable Eos # (Auto) Baso # (Auto) Not Reportable Total Counted 100 Seg Neutrophils % 56.0 Band Neutrophils % 38.0 H Lymphocytes % (Manual) 2.0 L Monocytes % (Manual) 4.0 Neutrophils # (Manual) 90659 H RBC Morphology Normal morphology Rouleaux 1+ H D-Dimer 5339 H Sodium 137 Potassium 4.8 Chloride 106 Carbon Dioxide 18 L BUN 14 Creatinine 1.04 Estimated GFR > 60 BUN/Creatinine Ratio 13.5 Glucose 320 H POC Whole Bld Glucose 333 H Lactate 3.2 H 2.4 H Calcium 6.4 L* Magnesium Total Bilirubin 1.2 AST 41 ALT 30 Alkaline Phosphatase 58 Troponin I Total Protein 7.3 Albumin 3.7 Globulin 3.6 Albumin/Globulin Ratio 1.0 Triglycerides TSH 1.45 Nasal Screen MRSA (PCR) 02/25/25 02/25/25 02/25/25 21:09 22:07 23:02 WBC RBC Hgb Hct MCV MCH MCHC RDW Plt Count Neut % (Auto) Lymph % (Auto) [place] % (Auto) Eos % (Auto) Baso % (Auto) Neut # (Auto) Lymph # (Auto) [place] # (Auto) Eos # (Auto) Baso # (Auto) Total Counted Seg Neutrophils % Band Neutrophils % Lymphocytes % (Manual) Monocytes % (Manual) Neutrophils # (Manual) RBC Morphology Rouleaux D-Dimer Sodium Potassium Chloride Carbon Dioxide BUN Creatinine Estimated GFR BUN/Creatinine Ratio Glucose POC Whole Bld Glucose 303 H 320 H 292 H Lactate Calcium Magnesium Total Bilirubin AST ALT Alkaline Phosphatase Troponin I Total Protein Albumin Globulin Albumin/Globulin Ratio Triglycerides TSH Nasal Screen MRSA (PCR) 02/26/25 02/26/25 02/26/25 00:06 01:05 02:04 WBC RBC Hgb Hct MCV MCH MCHC RDW Plt Count Neut % (Auto) Lymph % (Auto) [place] % (Auto) Eos % (Auto) Baso % (Auto) Neut # (Auto) Lymph # (Auto) [place] # (Auto) Eos # (Auto) Baso # (Auto) Total Counted Seg Neutrophils % Band Neutrophils % Lymphocytes % (Manual) Monocytes % (Manual) Neutrophils # (Manual) RBC Morphology Rouleaux D-Dimer Sodium Potassium Chloride Carbon Dioxide BUN Creatinine Estimated GFR BUN/Creatinine Ratio Glucose POC Whole Bld Glucose 245 H 229 H 225 H Lactate Calcium Magnesium Total Bilirubin AST ALT Alkaline Phosphatase Troponin I Total Protein Albumin Globulin Albumin/Globulin Ratio Triglycerides TSH Nasal Screen MRSA (PCR) 02/26/25 02/26/25 02/26/25 03:10 04:02 04:45 WBC RBC Hgb Hct MCV MCH MCHC RDW Plt Count Neut % (Auto) Lymph % (Auto) [place] % (Auto) Eos % (Auto) Baso % (Auto) Neut # (Auto) Lymph # (Auto) [place] # (Auto) Eos # (Auto) Baso # (Auto) Total Counted Seg Neutrophils % Band Neutrophils % Lymphocytes % (Manual) Monocytes % (Manual) Neutrophils # (Manual) RBC Morphology Rouleaux D-Dimer Sodium Potassium Chloride Carbon Dioxide BUN Creatinine Estimated GFR BUN/Creatinine Ratio Glucose POC Whole Bld Glucose 258 H 179 H Lactate Calcium Magnesium Total Bilirubin AST ALT Alkaline Phosphatase Troponin I Total Protein Albumin Globulin Albumin/Globulin Ratio Triglycerides TSH Nasal Screen MRSA (PCR) Not detected 02/26/25 02/26/25 02/26/25 05:04 06:00 06:14 WBC 16.1 H RBC 4.94 Hgb 15.0 Hct 43.6 MCV 88.3 MCH 30.4 MCHC 34.5 RDW 13.9 Plt Count 211 Neut % (Auto) 87.6 H Lymph % (Auto) 7.1 L [place] % (Auto) 5.0 Eos % (Auto) 0.1 L Baso % (Auto) 0.2 Neut # (Auto) 92431 H Lymph # (Auto) 1100 [place] # (Auto) 800 Eos # (Auto) 0 Baso # (Auto) 0 Total Counted Seg Neutrophils % Band Neutrophils % Lymphocytes % (Manual) Monocytes % (Manual) Neutrophils # (Manual) RBC Morphology Rouleaux D-Dimer Sodium 137 Potassium 4.0 Chloride 110 H Carbon Dioxide 19 L BUN 19 Creatinine 1.01 Estimated GFR > 60 BUN/Creatinine Ratio 18.8 Glucose 179 H D POC Whole Bld Glucose 177 H 180 H Lactate Calcium 6.1 L* Magnesium 1.7 Total Bilirubin 1.0 AST 39 ALT 25 Alkaline Phosphatase 48 Troponin I < 0.012 Total Protein 6.5 Albumin 3.3 L Globulin 3.2 Albumin/Globulin Ratio 1.0 Triglycerides 1207 H TSH Nasal Screen MRSA (PCR) 02/26/25 07:02 WBC RBC Hgb Hct MCV MCH MCHC RDW Plt Count Neut % (Auto) Lymph % (Auto) [place] % (Auto) Eos % (Auto) Baso % (Auto) Neut # (Auto) Lymph # (Auto) [place] # (Auto) Eos # (Auto) Baso # (Auto) Total Counted Seg Neutrophils % Band Neutrophils % Lymphocytes % (Manual) Monocytes % (Manual) Neutrophils # (Manual) RBC Morphology Rouleaux D-Dimer Sodium Potassium Chloride Carbon Dioxide BUN Creatinine Estimated GFR BUN/Creatinine Ratio Glucose POC Whole Bld Glucose 191 H Lactate Calcium Magnesium Total Bilirubin AST ALT Alkaline Phosphatase Troponin I Total Protein Albumin Globulin Albumin/Globulin Ratio Triglycerides TSH Nasal Screen MRSA (PCR) [facility] Social History household members: none Smoking Status: Former smoker Assessment & Plan Assessment & Plan narrative: Acute pancreatitis. Likely related to hypertriglyceridemia and underlying alcohol abuse. Advance diet to low-fat, continue IV fluid and IV Dilaudid. Continue ondansetron and metoclopramide. Continue IV insulin drip to bring the triglyceride effects under control for 1 more day. Alcohol abuse. Continue CIWA protocol. Last drink was 3 days before admission. Persistent sinus tachycardia. Likely multifactorial including acute pancreatitis, alcohol withdrawal, possible pneumonia/abdominal infection. -continue on Zosyn with chest CT evidence of basilar effusions and infiltrate. No PE seen. Diabetes mellitus. Glucose continues in the 200s. No prior history of reported diabetes. 9.3 A1c. Using subcu insulin and will add Glargine 10 units HS. Will need to follow-up outpatient for possible diabetic management. Continue IV insulin for 1 more day, also in use for hypertriglyceridemia. DVT prophylaxis SCDs and early ambulation. CODE STATUS full code. Disposition likely home in 2 to 3 days Time-Based Coding :: [TOTAL MINUTES] spent with patient and on the chart (including review of chart, obtaining history, exam, reviewing outside data, placing orders, documenting exam and treatment plan, and counseling patient) on [DATE].
[2025-02-26] MEDS: MULTIVITAMIN 1 TABLET 1 TAB PO (08:17)
[2025-02-26] MEDS: FOLIC ACID 1 MG TABLET PO (08:17)
--- NOTE | 2025-02-26 08:52 | DI.CT.S_ITS ---
PROCEDURE: CT ANGIO CHEST PE PROTOCOL INDICATIONS: Pneumonia and Tachycardia TECHNIQUE: After the administration of intravenous contrast, 2 mm thick sections acquired from the pulmonary apices to the posterior costophrenic angles. 3-dimensional maximum intensity projection (MIP) coronal and sagittal reformats were then acquired through the thorax. For radiation dose reduction, the following was used: automated exposure control, adjustment of mA and/or kV according to patient size. COMPARISON: [facility], CR, XR CHEST 1V, 02/24/2025, 21:49. FINDINGS: Image quality: Mostly diagnostic although pulmonary artery contrast opacification is suboptimal Lungs and pleura: Left lung base consolidation. Milder right lung base opacity also present. There is superimposed atelectasis. Trace right and small left pleural effusions. Mild septal thickening also present. Mediastinum, heart, and esophagus: Mildly patulous esophagus. Heart size is at the upper limit of normal. Contrast opacification of pulmonary arteries is suboptimal, however no central pulmonary embolism is seen. No enlarged lymph nodes by size criteria Chest wall and thyroid: Unremarkable Upper abdomen: Inflammation is seen surrounding the pancreas, better assessed on recent CT abdomen Bones: There are degenerative osseous changes. IMPRESSION: Suboptimal contrast opacification of pulmonary arteries. No central pulmonary embolism is seen. Bibasilar pulmonary atelectasis, airspace consolidations, and pleural effusions greater on the left. Mild pulmonary septal edema. Findings likely represent a combination of edema and infection. Partially seen pancreatitis changes. Other findings above. Dictated by: Vik Sky M.D. on 02/26/2025 at 8:44 Approved by: Vik Sky M.D. on 02/26/2025 at 8:47
[2025-02-26] MEDS: HYDROCODONE/ACET 5/325 TABLET 1 TAB PO (10:41)
[2025-02-26] MEDS: PROCHLORPERAZINE 10 MG/2 ML VIAL IV ×2 (12:32→20:00)
[2025-02-26] MEDS: CALCIUM GLUCONATE 9.3 MEQ in SODIUM CHLORIDE 0.9% 50 ML 140 MEQ IV (14:05)
[2025-02-26] MEDS: FUROSEMIDE 40 MG/4 ML VIAL IV (15:19)
[2025-02-26] MEDS: INSULIN DRIP PREMIX 100 UNIT/100 ML PLAST..BAG 12 UNIT IV (16:43)
[2025-02-26] MEDS: ACETAMINOPHEN 325 MG TABLET 650 MG PO (18:34)
[2025-02-26 19:56] LABS: Add Manual Diff / Slide Review NO; Hematocrit 39.1 % (41-53); Hemoglobin 13.5 g/dL (13.5-17.5); Lymphocytes Absolute Auto 1100 /uL (1100-4500); Mean Corpuscular HGB Conc 34.5 % (30-36); Mean Corpuscular Hemoglobin 30.3 PG (26-34); Mean Corpuscular Volume 87.8 fL (80-100); Platelet Count 208 X10^3/uL (150-400)
[2025-02-26 20:02] LABS: Lipase 550 U/L (23-300)
[2025-02-26 21:02] LABS: COVID-19 CEPHEID 4-PLEX PCR Negative (Negative); Influenza A - CEPHEID Flu A NEGATIVE (NEGATIVE); Influenza B - CEPHEID Flu B NEGATIVE (NEGATIVE)
[2025-02-26] MEDS: ALBUTEROL/IPRATROPIUM 3 ML AMPUL INH (22:55)
[2025-02-26] MEDS: DEXTROSE 5%-0.9% NS 1,000 ML 125 ML IV (23:28)
[2025-02-27] VITALS (12 sets, daily range): BP systolic 113–142; BP diastolic 9–92; PULSE 92–116; RESP 18–24; TEMP 36.3–38.5; O2SAT 90–96
[2025-02-27] MEDS: ACETAMINOPHEN 325 MG TABLET 650 MG PO (01:41)
[2025-02-27] MEDS: PIPERACILLIN/TAZO 4.5 GM in SODIUM CHLORIDE 0.9% 100 ML IV ×3 (01:47→17:49)
[2025-02-27 01:52] LABS: Add Manual Diff / Slide Review NO; Hematocrit 34.0 % (41-53); Hemoglobin 11.6 g/dL (13.5-17.5); Lymphocytes Absolute Auto 1100 /uL (1100-4500); Mean Corpuscular HGB Conc 34.2 % (30-36); Mean Corpuscular Hemoglobin 30.7 PG (26-34); Mean Corpuscular Volume 89.8 fL (80-100); Platelet Count 163 X10^3/uL (150-400)
[2025-02-27] MEDS: INSULIN DRIP PREMIX 100 UNIT/100 ML PLAST..BAG 7 UNIT IV (03:12)
[2025-02-27 03:45] LABS: Alanine Aminotransferase 20 IU/L (<50); Albumin 3.1 g/dL (3.5-5.0); Albumin Globulin Ratio 1.0 (1.0-2.8); Alkaline Phosphatase 53 U/L (38-126); Blood Urea Nitrogen 14 mg/dL (9-20); Calcium 6.8 mg/dL (8.4-10.2); Carbon Dioxide 25 mmol/L (22-32); Chloride 104 mmol/L (98-107); Estimated Glomerular Filt Rate > 60 mL/min (>60); Globulin 3.0 g/dL (1.7-4.1); Glucose 168 mg/dL (70-99); HEMOLYSIS < 15 (0-50); Potassium 3.1 mmol/L (3.4-5.1); Sodium 135 mmol/L (137-145); Total Protein 6.1 g/dL (6.3-8.2)
[2025-02-27 04:36] LABS: Add Manual Diff / Slide Review NO; Hematocrit 36.9 % (41-53); Hemoglobin 12.7 g/dL (13.5-17.5); Lymphocytes Absolute Auto 1000 /uL (1100-4500); Mean Corpuscular HGB Conc 34.5 % (30-36); Mean Corpuscular Hemoglobin 30.4 PG (26-34); Mean Corpuscular Volume 88.0 fL (80-100); Platelet Count 185 X10^3/uL (150-400)
--- NOTE | 2025-02-27 07:16 | P.PN_ITS ---
Subjective Subjective Date Patient Seen: 02/27/25 Interval history: He is feeling much better this morning after experiencing a fever late in the day yesterday. The white blood count has dropped from 15.8 down to 14.1. The lipase has dropped from 11,633 down to 550. The potassium has dropped from 4.0 down to 3.1. The T-max is 102.5? with a heart rate down to 102. The IV insulin drip, IV fluid will be stopped and he will be placed back on lispro/Lantus and carb choice diet. He will also be receiving potassium supplementation. The COVID and flu tests yesterday were negative. He remains on Zosyn. Exam Vital Signs (past 8 hours): - 02/27/25 01:00 02/27/25 02:00 02/27/25 02:07 Temperature 101.3 F H Pulse Rate 116 H 110 H Respiratory Rate 22 18 Blood Pressure 130/79 135/72 Pulse Oximetry 91 90 L Oxygen Delivery Method Room Air 02/27/25 03:00 02/27/25 03:00 02/27/25 04:00 Temperature 99.1 F Pulse Rate 113 H 98 H Respiratory Rate 18 18 Blood Pressure 128/74 113/62 Pulse Oximetry 91 92 Oxygen Delivery Method 02/27/25 05:00 02/27/25 06:00 Temperature 98.7 F Pulse Rate 101 H 102 H Respiratory Rate 20 18 Blood Pressure 126/81 138/77 Pulse Oximetry 91 92 Oxygen Delivery Method Oxygen Delivery Method Room Air Oxygen Flow Rate 0 Narrative Exam Narrative: Alert and oriented x3. No apparent distress Heart is regular rate and rhythm without murmur Lungs are clear to auscultation bilaterally Extremities have no ankle edema Abdomen is soft, obese, nontender, not distended. Objective Labs 02/27/25 03:23 02/27/25 03:23 Labs: Laboratory Results - last 24 hr 02/26/25 02/26/25 02/26/25 07:35 08:29 09:36 WBC RBC Hgb Hct MCV MCH MCHC RDW Plt Count Neut % (Auto) Lymph % (Auto) [facility] % (Auto) Eos % (Auto) Baso % (Auto) Neut # (Auto) Lymph # (Auto) [facility] # (Auto) Eos # (Auto) Baso # (Auto) Sodium Potassium Chloride Carbon Dioxide BUN Creatinine Estimated GFR BUN/Creatinine Ratio Glucose POC Whole Bld Glucose 205 H 204 H 196 H Calcium Total Bilirubin AST ALT Alkaline Phosphatase Total Protein Albumin Globulin Albumin/Globulin Ratio Lipase SARS-CoV-2 (PCR) Influenza A (RT-PCR) Influenza B (RT-PCR) RSV (PCR) 02/26/25 02/26/25 02/26/25 10:37 11:32 12:28 WBC RBC Hgb Hct MCV MCH MCHC RDW Plt Count Neut % (Auto) Lymph % (Auto) [facility] % (Auto) Eos % (Auto) Baso % (Auto) Neut # (Auto) Lymph # (Auto) [facility] # (Auto) Eos # (Auto) Baso # (Auto) Sodium Potassium Chloride Carbon Dioxide BUN Creatinine Estimated GFR BUN/Creatinine Ratio Glucose POC Whole Bld Glucose 190 H 184 H 180 H Calcium Total Bilirubin AST ALT Alkaline Phosphatase Total Protein Albumin Globulin Albumin/Globulin Ratio Lipase SARS-CoV-2 (PCR) Influenza A (RT-PCR) Influenza B (RT-PCR) RSV (PCR) 02/26/25 02/26/25 02/26/25 13:31 14:29 15:29 WBC RBC Hgb Hct MCV MCH MCHC RDW Plt Count Neut % (Auto) Lymph % (Auto) [facility] % (Auto) Eos % (Auto) Baso % (Auto) Neut # (Auto) Lymph # (Auto) [facility] # (Auto) Eos # (Auto) Baso # (Auto) Sodium Potassium Chloride Carbon Dioxide BUN Creatinine Estimated GFR BUN/Creatinine Ratio Glucose POC Whole Bld Glucose 205 H 207 H 209 H Calcium Total Bilirubin AST ALT Alkaline Phosphatase Total Protein Albumin Globulin Albumin/Globulin Ratio Lipase SARS-CoV-2 (PCR) Influenza A (RT-PCR) Influenza B (RT-PCR) RSV (PCR) 02/26/25 02/26/25 02/26/25 16:37 17:38 18:30 WBC RBC Hgb Hct MCV MCH MCHC RDW Plt Count Neut % (Auto) Lymph % (Auto) [facility] % (Auto) Eos % (Auto) Baso % (Auto) Neut # (Auto) Lymph # (Auto) [facility] # (Auto) Eos # (Auto) Baso # (Auto) Sodium Potassium Chloride Carbon Dioxide BUN Creatinine Estimated GFR BUN/Creatinine Ratio Glucose POC Whole Bld Glucose 210 H 196 H 205 H Calcium Total Bilirubin AST ALT Alkaline Phosphatase Total Protein Albumin Globulin Albumin/Globulin Ratio Lipase SARS-CoV-2 (PCR) Influenza A (RT-PCR) Influenza B (RT-PCR) RSV (PCR) 02/26/25 02/26/25 02/26/25 19:25 19:41 20:17 WBC 15.8 H RBC 4.46 L Hgb 13.5 Hct 39.1 L MCV 87.8 MCH 30.3 MCHC 34.5 RDW 13.9 Plt Count 208 Neut % (Auto) 87.9 H Lymph % (Auto) 6.[address] [facility] % (Auto) 5.0 Eos % (Auto) 0.2 L Baso % (Auto) 0.1 Neut # (Auto) 43550 H Lymph # (Auto) 1100 [facility] # (Auto) 800 Eos # (Auto) 0 Baso # (Auto) 0 Sodium Potassium Chloride Carbon Dioxide BUN Creatinine Estimated GFR BUN/Creatinine Ratio Glucose POC Whole Bld Glucose 184 H Calcium Total Bilirubin AST ALT Alkaline Phosphatase Total Protein Albumin Globulin Albumin/Globulin Ratio Lipase 550 H D SARS-CoV-2 (PCR) Negative Influenza A (RT-PCR) Flu a negative Influenza B (RT-PCR) Flu b negative RSV (PCR) Negative 02/26/25 02/26/25 02/26/25 21:10 22:01 23:05 WBC RBC Hgb Hct MCV MCH MCHC RDW Plt Count Neut % (Auto) Lymph % (Auto) [facility] % (Auto) Eos % (Auto) Baso % (Auto) Neut # (Auto) Lymph # (Auto) [facility] # (Auto) Eos # (Auto) Baso # (Auto) Sodium Potassium Chloride Carbon Dioxide BUN Creatinine Estimated GFR BUN/Creatinine Ratio Glucose POC Whole Bld Glucose 182 H 160 H 158 H Calcium Total Bilirubin AST ALT Alkaline Phosphatase Total Protein Albumin Globulin Albumin/Globulin Ratio Lipase SARS-CoV-2 (PCR) Influenza A (RT-PCR) Influenza B (RT-PCR) RSV (PCR) 02/27/25 02/27/25 02/27/25 00:13 01:09 01:30 WBC 13.5 H RBC 3.78 L Hgb 11.6 L Hct 34.0 L MCV 89.8 MCH 30.7 MCHC 34.2 RDW 14.1 Plt Count 163 Neut % (Auto) 85.8 H Lymph % (Auto) 7.[address] % (Auto) 5.5 Eos % (Auto) 0.3 L Baso % (Auto) 0.5 Neut # (Auto) 42104 H Lymph # (Auto) 1100 [facility] # (Auto) 700 Eos # (Auto) 0 Baso # (Auto) 100 Sodium Potassium Chloride Carbon Dioxide BUN Creatinine Estimated GFR BUN/Creatinine Ratio Glucose POC Whole Bld Glucose 169 H 175 H Calcium Total Bilirubin AST ALT Alkaline Phosphatase Total Protein Albumin Globulin Albumin/Globulin Ratio Lipase SARS-CoV-2 (PCR) Influenza A (RT-PCR) Influenza B (RT-PCR) RSV (PCR) 02/27/25 02/27/25 02/27/25 02:02 03:03 03:23 WBC 14.1 H RBC 4.19 L Hgb 12.7 L Hct 36.9 L MCV 88.0 MCH 30.4 MCHC 34.5 RDW 13.9 Plt Count 185 Neut % (Auto) 86.7 H Lymph % (Auto) 7.[address] [facility] % (Auto) 5.1 Eos % (Auto) 0.6 L Baso % (Auto) 0.3 Neut # (Auto) 10248 H Lymph # (Auto) [address] [facility] # (Auto) 700 Eos # (Auto) 100 Baso # (Auto) 0 Sodium 135 L Potassium 3.1 L Chloride 104 Carbon Dioxide 25 BUN 14 Creatinine 0.84 Estimated GFR > 60 BUN/Creatinine Ratio 16.7 Glucose 168 H POC Whole Bld Glucose 187 H 173 H Calcium 6.8 L Total Bilirubin 0.6 AST 27 ALT 20 Alkaline Phosphatase 53 Total Protein 6.1 L Albumin 3.1 L Globulin 3.0 Albumin/Globulin Ratio 1.0 Lipase SARS-CoV-2 (PCR) Influenza A (RT-PCR) Influenza B (RT-PCR) RSV (PCR) 02/27/25 02/27/25 05:10 06:11 WBC RBC Hgb Hct MCV MCH MCHC RDW Plt Count Neut % (Auto) Lymph % (Auto) [facility] % (Auto) Eos % (Auto) Baso % (Auto) Neut # (Auto) Lymph # (Auto) [facility] # (Auto) Eos # (Auto) Baso # (Auto) Sodium Potassium Chloride Carbon Dioxide BUN Creatinine Estimated GFR BUN/Creatinine Ratio Glucose POC Whole Bld Glucose 157 H 165 H Calcium Total Bilirubin AST ALT Alkaline Phosphatase Total Protein Albumin Globulin Albumin/Globulin Ratio Lipase SARS-CoV-2 (PCR) Influenza A (RT-PCR) Influenza B (RT-PCR) RSV (PCR) PFSH Social History household members: none Smoking Status: Former smoker Assessment & Plan Assessment & Plan narrative: Acute pancreatitis. Likely related to hypertriglyceridemia and underlying alcohol abuse. Tolerating low-fat. Stopping IV fluid and Dilaudid. Continue ondansetron and metoclopramide. Stop IV insulin. Fever 102.5 on 02/26 subsequently resolved no additional cause identified. Continues on Zosyn. Hypokalemia -potassium 3.1 on 02/27. Begin oral supplementation and follow. Alcohol abuse. Continue CIWA protocol. Last drink was 3 days before admission. Persistent sinus tachycardia. Likely multifactorial including acute pancreatitis, alcohol withdrawal, possible pneumonia/abdominal infection. -continue on Zosyn with chest CT evidence of basilar effusions and infiltrate. No PE seen. Resolving. Diabetes mellitus. Glucose continues in the 200s. No prior history of reported diabetes. 9.3 A1c. Using subcu insulin and will add Glargine 10 units HS. Will need to follow-up outpatient for possible diabetic management. Continue IV insulin for 1 more day, also in use for hypertriglyceridemia. Stopping IV insulin and moving back to glargine plus lispro insulin. DVT prophylaxis SCDs and early ambulation. CODE STATUS full code. Disposition likely home in 2 to 3 days Time-Based Coding :: [TOTAL MINUTES] spent with patient and on the chart (including review of chart, obtaining history, exam, reviewing outside data, placing orders, documenting exam and treatment plan, and counseling patient) on [DATE].
[2025-02-27 07:44] LABS: Appearance Urine UA TURBID; Bilirubin Urine UA NEGATIVE (NEGATIVE); Color Urine UA YELLOW; Glucose Urine UA 1+ g/dL (Negative); Ketones Urine UA TRACE (NEGATIVE); Leukocyte Esterase Urine UA NEGATIVE (NEGATIVE); Nitrite Urine UA NEGATIVE (Negative); Occult Blood Urine UA 1+ (Negative); Protein Urine UA 2+ (Negative); Specific Gravity Urine UA >=1.030 (1.000-1.035); Urobilinogen Urine UA 2.0 E.U./dL (0.2); pH Urine UA 5.5 (4.5-8.0)
[2025-02-27 07:55] LABS: Culture Indicated Urine Cult Not Indicated
[2025-02-27] MEDS: POTASSIUM CHLORIDE 20 MEQ TAB PO ×2 (08:31→16:08)
[2025-02-27] MEDS: MULTIVITAMIN 1 TABLET 1 TAB PO (08:33)
[2025-02-27] MEDS: HYDROCODONE/ACET 5/325 TABLET 1 TAB PO ×4 (08:33→20:13)
[2025-02-27] MEDS: FOLIC ACID 1 MG TABLET PO (08:33)
[2025-02-27] MEDS: DEXTROSE 5%-0.9% NS 1,000 ML 125 ML IV (08:36)
[2025-02-27] MEDS: SENNOSIDES 8.6 MG TABLET PO ×2 (11:41→20:13)
[2025-02-27] MEDS: INSULIN LISPRO 100 UNIT/ML 3ML VIAL SUBCUT ×3 (12:15→20:14)
[2025-02-27] MEDS: CALCIUM CARBONATE 500 MG TAB 1000 MG PO (12:15)
--- NOTE | 2025-02-27 13:12 | CM.DPC ---
DCP Cont: Per MD, pt's abdominal pain has resolved but still with lung crackles and PE and higher blood sugars and will advance diet to full liquids today to see how he tolerates for possible discharge home tomorrow. Per AD Counselors, attempted to confirm pt's insurance but showing as inactive and since pt's permanent address is [place] then cannot sign up pt for medical insurance on Health Plan Finder. Will give pt [facility] information. SW met bedside with pt and explained role and pt confirms he has been tolerating full liquids well today and is feeling better and aware of his insurance barriers but states he should have insurance and will call them soon to determine what is needed to confirm it is active and will provide this information to Patient Accounts. 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 Provided pt with the printed [employer] information per pt request and pt confirms preference is home with family and interested in diabetes education. SW called [employer] and confirmed [employer] orders placed and she will see pt after lunch and kindly plans to bring handouts and information for the patient and help determine possible options for outpt f/u at d/c regarding his insurance/etc.. Plan: SW to follow for plan of discharge home with family support when stable and pt given resources and educational information. FREDERICK Malhotra
--- NOTE | 2025-02-27 14:57 | DIET.CONS ---
Dietary Consultation Note Admission Date: 02/25/2025 00:46 Assessment: 45 y M admitted for pancreatitis. Dietitian consulted for educ on newly dx diabetes. Met with pt at bedside. Pt has questions regarding BG numbers to aim for and lows. A1c 9.3%. Went 5 days without eating, ate all of breakfast this morning, felt bloated and just now starting to feel hungry to eat lunch. Pt splits time living in [place] and here. Ht: 195.58 cm Wt: 142 kg BMI: 38.1 UBW: no weight hx Last BM: 02/27/25 (02/27/25 11:00) MNA: 14 Pedro Score: 23 Diet: 02/26/25 Lunch Low/restricted Fat Diet Diet Modifications: Dietary Fat allowed: 25 grams (pancreatitis) Food Texture: Level 7 - Regular Liquid Consistency: Level 0 - Thin Nutrition Percent Meal Consumed 15 02/26/25 15:07 Percent Meal Consumed 15 02/26/25 12:30 Labs: RBC 4.19 X10^6/uL (4.5-5.9) L 02/27/25 03:23 Hgb 12.7 g/dL (13.5-17.5) L 02/27/25 03:23 Hct 36.9 % (41-53) L 02/27/25 03:23 Creatinine 0.84 mg/dL (0.66-1.25) 02/27/25 03:23 Hemoglobin A1c 9.3 % (4.0-6.0) H 02/24/25 22:36 Lactate 2.4 mmol/L (0.7-2.1) H 02/25/25 21:00 Nutrition Diagnosis: Altered nutrition related lab values r/t endocrine dysfunction aeb 9.3% A1c Interventions: -Discussed CHO amounts, pairing, and spacing of macros -provided NCM handout on CHO counting -Reviewed label reading for CHO -provided NCM handout on label reading CHO and novocare eating well CHO list -Discussed BG numbers to aim for with fasting and postprandial and A1c% -provided novocare handout -Discussed treatment of lows with rule of 15s and symptoms-provided ADA handout -Reviewed example meals from pt's diet recall (i.e. B-djiboutian yogurt and fruit, L-sandwich) EER: 45-60 g carbs at meals, 15-30 g carbs at snacks Monitoring/Evaluations: BG, PO intakes Electronically Signed by: Susan Gambino 02/27/25 14:57 Clinical Dietitian [address] [address]
--- NOTE | 2025-02-27 18:20 | PC.NURSE ---
Pt off insulin drip. CIWA 0 for entire shift. Pt still complaining of abd pain/bloating. Stool softeners started and PO [place] given q4h. Family visiting at bedside.
[2025-02-27] MEDS: INSULIN GLARGINE 100 UNIT/ML 3ML PEN 15 UNIT SUBCUT (20:13)
[2025-02-28] VITALS: BP 139/79; PULSE 95; RESP 18; O2SAT 93
[2025-02-28] MEDS: PIPERACILLIN/TAZO 4.5 GM in SODIUM CHLORIDE 0.9% 100 ML IV (01:47)
[2025-02-28] MEDS: HYDROCODONE/ACET 5/325 TABLET 1 TAB PO ×2 (01:47→08:48)
[2025-02-28 04:00] VITALS: BP 146/86; PULSE 113; RESP 18; O2SAT 96
[2025-02-28 06:56] LABS: Add Manual Diff / Slide Review NO; Hematocrit 36.4 % (41-53); Hemoglobin 12.4 g/dL (13.5-17.5); Lymphocytes Absolute Auto 1100 /uL (1100-4500); Mean Corpuscular HGB Conc 33.9 % (30-36); Mean Corpuscular Hemoglobin 30.0 PG (26-34); Mean Corpuscular Volume 88.5 fL (80-100); Platelet Count 208 X10^3/uL (150-400)
[2025-02-28 07:08] LABS: Blood Urea Nitrogen 11 mg/dL (9-20); Calcium 7.9 mg/dL (8.4-10.2); Carbon Dioxide 23 mmol/L (22-32); Chloride 101 mmol/L (98-107); Estimated Glomerular Filt Rate > 60 mL/min (>60); Glucose 208 mg/dL (70-99); HEMOLYSIS < 15 (0-50); Potassium 3.4 mmol/L (3.4-5.1); Sodium 135 mmol/L (137-145)
--- NOTE | 2025-02-28 07:46 | P.PN_ITS ---
Subjective Subjective Date Patient Seen: 02/28/25 Exam Vital Signs (past 8 hours): - 02/28/25 00:00 02/28/25 04:00 Pulse Rate 95 H 113 H Respiratory Rate 18 18 Blood Pressure 139/79 146/86 H Pulse Oximetry 93 96 Oxygen Delivery Method Room Air Oxygen Flow Rate 0 Objective Labs 02/28/25 06:48 02/28/25 06:48 Labs: Laboratory Results - last 24 hr 02/27/25 02/27/25 02/27/25 06:48 08:03 08:37 WBC RBC Hgb Hct MCV MCH MCHC RDW Plt Count Neut % (Auto) Lymph % (Auto) [place] % (Auto) Eos % (Auto) Baso % (Auto) Neut # (Auto) Lymph # (Auto) [place] # (Auto) Eos # (Auto) Baso # (Auto) Sodium Potassium Chloride Carbon Dioxide BUN Creatinine Estimated GFR BUN/Creatinine Ratio Glucose POC Whole Bld Glucose 166 H 160 H Calcium Urine Color Yellow Urine Appearance Turbid Urine pH 5.5 Ur Specific [place] >=1.030 H Urine Protein 2+ H Urine Glucose (UA) 1+ H Urine Ketones Trace H Urine Occult Blood 1+ H Urine Nitrate Negative Urine Bilirubin Negative Urine Urobilinogen 2.0 H Ur Leukocyte Esterase Negative Urine RBC None seen Urine WBC None seen Ur Squamous Epith Cells None seen Amorphous Sediment 4+ Urine Bacteria None seen Ur Culture Indicated? Cult not indicated Vol Urine Centrifuged 10ml (spun) 02/27/25 02/27/25 02/27/25 11:57 16:31 20:52 WBC RBC Hgb Hct MCV MCH MCHC RDW Plt Count Neut % (Auto) Lymph % (Auto) [place] % (Auto) Eos % (Auto) Baso % (Auto) Neut # (Auto) Lymph # (Auto) [place] # (Auto) Eos # (Auto) Baso # (Auto) Sodium Potassium Chloride Carbon Dioxide BUN Creatinine Estimated GFR BUN/Creatinine Ratio Glucose POC Whole Bld Glucose 196 H 201 H 192 H Calcium Urine Color Urine Appearance Urine pH Ur Specific [place] Urine Protein Urine Glucose (UA) Urine Ketones Urine Occult Blood Urine Nitrate Urine Bilirubin Urine Urobilinogen Ur Leukocyte Esterase Urine RBC Urine WBC Ur Squamous Epith Cells Amorphous Sediment Urine Bacteria Ur Culture Indicated? Vol Urine Centrifuged 02/28/25 06:48 WBC 15.9 H RBC 4.12 L Hgb 12.4 L Hct 36.4 L MCV 88.5 MCH 30.0 MCHC 33.9 RDW 14.1 Plt Count 208 Neut % (Auto) 86.0 H Lymph % (Auto) 6.9 L [place] % (Auto) 6.0 Eos % (Auto) 0.9 L Baso % (Auto) 0.2 Neut # (Auto) 12265 H Lymph # (Auto) 1100 [place] # (Auto) 1000 H Eos # (Auto) 200 Baso # (Auto) 0 Sodium 135 L Potassium 3.4 Chloride 101 Carbon Dioxide 23 BUN 11 Creatinine 0.72 Estimated GFR > 60 BUN/Creatinine Ratio 15.3 Glucose 208 H POC Whole Bld Glucose Calcium 7.9 L Urine Color Urine Appearance Urine pH Ur Specific [place] Urine Protein Urine Glucose (UA) Urine Ketones Urine Occult Blood Urine Nitrate Urine Bilirubin Urine Urobilinogen Ur Leukocyte Esterase Urine RBC Urine WBC Ur Squamous Epith Cells Amorphous Sediment Urine Bacteria Ur Culture Indicated? Vol Urine Centrifuged PFSH Social History household members: none Smoking Status: Former smoker Assessment & Plan Assessment & Plan narrative: Acute pancreatitis. Likely related to hypertriglyceridemia and underlying alcohol abuse. Tolerating low-fat. Stopping IV fluid and Dilaudid. Continue ondansetron and metoclopramide. Stop IV insulin. Fever 102.5 on 02/26 subsequently resolved no additional cause identified. Continues on Zosyn. Hypokalemia -potassium 3.1 on 02/27. Begin oral supplementation and follow. Alcohol abuse. Continue CIWA protocol. Last drink was 3 days before admission. Persistent sinus tachycardia. Likely multifactorial including acute pancreatitis, alcohol withdrawal, possible pneumonia/abdominal infection. -continue on Zosyn with chest CT evidence of basilar effusions and infiltrate. No PE seen. Resolving. Diabetes mellitus. Glucose continues in the 200s. No prior history of reported diabetes. 9.3 A1c. Using subcu insulin and will add Glargine 10 units HS. Will need to follow-up outpatient for possible diabetic management. Continue IV insulin for 1 more day, also in use for hypertriglyceridemia. Stopping IV insulin and moving back to glargine plus lispro insulin. DVT prophylaxis SCDs and early ambulation. CODE STATUS full code. Disposition likely home in 2 to 3 days Time-Based Coding :: [TOTAL MINUTES] spent with patient and on the chart (including review of chart, obtaining history, exam, reviewing outside data, placing orders, documenting exam and treatment plan, and counseling patient) on [DATE].
[2025-02-28 08:00] VITALS: BP 180/96; PULSE 63; RESP 18; TEMP 36; O2SAT 95
[2025-02-28] MEDS: INSULIN LISPRO 100 UNIT/ML 3ML VIAL SUBCUT ×2 (08:46→12:27)
[2025-02-28] MEDS: POTASSIUM CHLORIDE 20 MEQ TAB 40 MEQ PO (08:48)
[2025-02-28] MEDS: FOLIC ACID 1 MG TABLET PO (08:48)
[2025-02-28] MEDS: MULTIVITAMIN 1 TABLET 1 TAB PO (08:49)
[2025-02-28] MEDS: SENNOSIDES 8.6 MG TABLET PO (08:49)
[2025-02-28 09:06] VITALS: BP 128/81; PULSE 106; RESP 19; TEMP 36.1; O2SAT 96
--- NOTE | 2025-02-28 11:51 | DIET.PN1 ---
Dietary Progress Note Assessment: Per rounds, pt to d/c on insulin. Pt heading back to [place] and plans to get f/u with provider. Pt open to having sample CGM. Ht: 195.58 cm Wt: 142 kg BMI: 38.1 Last BM: 02/27/25 (02/27/25 18:00) MNA: 14 Pedro Score: 22 Diet: 02/26/25 Lunch Low/restricted Fat Diet Diet Modifications: Dietary Fat allowed: 25 grams (pancreatitis) Food Texture: Level 7 - Regular Liquid Consistency: Level 0 - Thin Nutrition Percent Meal Consumed 100% 02/28/25 10:20 Percent Meal Consumed 25% 02/27/25 12:45 Percent Meal Consumed 25% 02/27/25 08:45 Percent Meal Consumed 15 02/26/25 15:07 Percent Meal Consumed 15 02/26/25 12:30 Labs: RBC 4.12 X10^6/uL (4.5-5.9) L 02/28/25 06:48 Hgb 12.4 g/dL (13.5-17.5) L 02/28/25 06:48 Hct 36.4 % (41-53) L 02/28/25 06:48 Creatinine 0.72 mg/dL (0.66-1.25) 02/28/25 06:48 Hemoglobin A1c 9.3 % (4.0-6.0) H 02/24/25 22:36 Lactate 2.4 mmol/L (0.7-2.1) H 02/25/25 21:00 Nutrition Diagnosis: Altered nutrition related lab values r/t endocrine dysfunction aeb 9.3% A1c Interventions: -Reviewed treatment for lows -Assisted pt in placing dexcom7 CGM and provided educ on how it works and when to use BG meter instead, pt watched the dexcom educ videos -RN to provide educ on using insulin pen Monitoring/Evaluations: pt to d/c, f/u PRN Electronically Signed by: Susan Gambino 02/28/25 11:51 Clinical Dietitian [address] [address]
--- NOTE | 2025-02-28 13:54 | P.DS_ITS ---
History of Present Illness History of Present Illness Date Patient Seen: 02/28/25 Chief complaint: abd pain, N/V/D Narrative: 42-year-old male with past medical history of alcohol abuse presents with complaint of abdominal pain. Per the patient's report, the patient does admit to drinking alcohol about 4-5 drinks a few times per week. The patient last alcohol intake was about 3 days ago. The patient states that starting yesterday the patient started to have left upper quadrant sharp abdominal pain. The patient also has some mild loose stool but denies any blood. The patient also have some nausea and vomiting associated with pain but denies any recent fever, chills, chest pain, dysuria shortness of breath. The patient denies any known history of gallstones or prior history of pancreatitis. In our emergency room, the patient was hemodynamically stable. Labs showed WBC of 19 glucose of 274 and lipase of 11,000. The patient has a normal lactic acid. UA was negative. Chest x-ray also was negative. CT scan of the abdomen shows signs of acute pancreatitis without necrotizing necrosis or abscess. The patient did IV Dilaudid for pain. IV fluids given.. Antibiotic initiated including due to concern of sepsis. Discharge Providers Provider Date of admission: 02/25/25 00:46 Discharge Date: 02/28/25 Primary care physician: He has no defined PCP in [place]. 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 Likely related to hypertriglyceridemia and underlying alcohol abuse. Tolerating low-fat diet. Stopped IV fluid and Dilaudid. Fever 102.5 on 02/26 subsequently resolved no additional cause identified. Treated with Zosyn. Hypokalemia -potassium 3.1 on 02/27. Up to 3.4 at discharge. Patient declined to stay until this was sustained in the normal range. Alcohol abuse. Minimal withdrawal symptoms. Persistent sinus tachycardia. Likely multifactorial including acute pancreatitis, alcohol withdrawal, possible pneumonia/abdominal infection. -continue on Zosyn with chest CT evidence of basilar effusions and infiltrate. No PE seen. Resolving but still frequently up to the 120s before discharge. Diabetes mellitus. Glucose continues in the 200s. No prior history of reported diabetes. 9.3 A1c. Using subcu insulin and Glargine 10 units HS. Will need to follow-up outpatient for possible diabetic management. He came in with acute pancreatitis related to hypertriglyceridemia, alcohol withdrawal and new onset hyperglycemia/diabetes mellitus. 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 No C-peptide was done on arrival. He remained with sinus tachycardia, slowly improving throughout his hospital stay. He was treated with IV insulin for the hypertriglyceridemia. He will need to discuss triglyceride lowering therapy with his new PCP. He will need to establish with a new PCP at his home in [place] within the next week, or attend at an urgent care for repeat monitoring of the potassium level, sinus tachycardia and to make sure his diabetes treatment and his hypertriglyceridemia treatment is on track. Status at Discharge Cognitive/behavioral status at discharge: at baseline, oriented Functional status at discharge: independent ambulation Overall status at discharge: patient is back to baseline Exam Vital Signs (past 8 hours): - 02/28/25 08:00 02/28/25 09:06 Temperature 96.8 F L 96.9 F L Pulse Rate 63 106 H Respiratory Rate 18 19 Blood Pressure 180/96 H 128/81 Pulse Oximetry 95 96 Oxygen Flow Rate 0 0 Oxygen Delivery Method Room Air Oxygen Flow Rate 0 Narrative Exam Narrative: Alert and oriented x3. Agitated and wishing to go. Declines to stay 1 more day to stabilize his electrolytes, etc.. Heart is mildly tachycardic with regular rhythm and no murmur. Lungs are clear to auscultation bilaterally Abdomen is obese, distended and not tender. There is no ankle edema. Objective Labs 02/28/25 06:48 02/28/25 06:48 Labs: Laboratory Results - last 24 hr 02/27/25 02/27/25 02/28/25 16:31 20:52 06:48 WBC 15.9 H RBC 4.12 L Hgb 12.4 L Hct 36.4 L MCV 88.5 MCH 30.0 MCHC 33.9 RDW 14.1 Plt Count 208 Neut % (Auto) 86.0 H Lymph % (Auto) 6.9 L [place] % (Auto) 6.0 Eos % (Auto) 0.9 L Baso % (Auto) 0.2 Neut # (Auto) 73316 H Lymph # (Auto) 1100 [place] # (Auto) 1000 H Eos # (Auto) 200 Baso # (Auto) 0 Sodium 135 L Potassium 3.4 Chloride 101 Carbon Dioxide 23 BUN 11 Creatinine 0.72 Estimated GFR > 60 BUN/Creatinine Ratio 15.3 Glucose 208 H POC Whole Bld Glucose 201 H 192 H Calcium 7.9 L 02/28/25 02/28/25 08:15 11:54 WBC RBC Hgb Hct MCV MCH MCHC RDW Plt Count Neut % (Auto) Lymph % (Auto) [place] % (Auto) Eos % (Auto) Baso % (Auto) Neut # (Auto) Lymph # (Auto) [place] # (Auto) Eos # (Auto) Baso # (Auto) Sodium Potassium Chloride Carbon Dioxide BUN Creatinine Estimated GFR BUN/Creatinine Ratio Glucose POC Whole Bld Glucose 225 H 211 H Calcium PFSH Social History household members: none Smoking Status: Former smoker Discharge Plan Discharge Plan Patient Disposition: Home Provider Discharge Comment: Follow up next week with your new PCP or at an urgent care in your area. You will need your Potassium checked and your heart rate checked. Discharge orders & Medications Prescriptions: New hydrocodone-acetaminophen 5-325 mg Tablet 1 tab PO Q4H PRN (Reason: Pain, Moderate (4-6)) Qty: 10 0RF potassium chloride [Klor-Con M20] 20 mEq Tablet,Er Particles/Crystals 20 meq PO BIDWM Qty: 6 0RF insulin glargine [Lantus Solostar U-100 Insulin] 100 unit/mL (3 mL) Insulin Pen 15 unit SUBCUT BEDTIME Qty: 15 0RF amoxicillin-pot clavulanate [Augmentin] 500-125 mg tablet 1 tab PO TID Qty: 20 0RF insulin lispro [Humalog KwikPen Insulin] 100 unit/mL insulin pen 5 unit SUBCUT TID Qty: 15 0RF (DME) Dexcom G7 Shop Service Technician Misc See Rx Instructions .Route Qty: 1 0RF Rx Instructions: As directed (DME) Dexcom G7 Sensor Device See Rx Instructions .Route Qty: 3 0RF Rx Instructions: As directed (DME) blood sugar diagnostic Strip See Rx Instructions .Route Qty: 100 0RF Rx Instructions: As directed test 3 times a day (DME) lancets Misc See Rx Instructions .Route Qty: 100 0RF Rx Instructions: As directed (DME) blood-glucose meter [Blood Glucose Monitoring] Kit See Rx Instructions .Route Qty: 1 0RF Rx Instructions: As directed hydrocodone-acetaminophen 5-325 mg tablet 1 tab PO Q6H PRN (Reason: pain) Qty: 10 0RF Diet/Activity/Treatments Diet: Regular and Carb-consistent/Diabetic Visit Report/Discharge Packet Stand Alone Forms: Patient Portal/API
== END 2025-02-28 14:00 | disposition home or self-care (01) | DRG 438 ==
LOC: ED 21:58 → AC 02-25 00:47 → ICU 02-25 18:44
PROVIDERS: Family Medicine; Admitting Provider Internal Medicine; Emergency Provider Emergency Medicine; Referring Provider Emergency Medicine; Visit Provider Internal Medicine
DX: K85.20 Alcohol induced acute pancreatitis without necrosis or infection (principal); J18.9 Pneumonia, unspecified organism; F10.139 Alcohol abuse with withdrawal, unspecified; R00.0 Tachycardia, unspecified; E78.1 Pure hyperglyceridemia; E11.65 Type 2 diabetes mellitus with hyperglycemia; E87.6 Hypokalemia; Z87.891 Personal history of nicotine dependence
CPT/HCPCS: 36415; 71045; 71275; 74177; 80048; 80053; 81001; 82962; 83036; 83605; 83690; 83735; 84145; 84443; 84478; 84484; 85007; 85025; 85379; 87040; 87637; 87797; 93005; 93010; 94640; 96361; 96374; 96375; 96376; 99284; J0612; J0780; J1171; J1815; J1938; J2405; J2543; J2765; Q9967

== ENCOUNTER 2025-03-02 23:10 | Emergency (ER) | payer OTHER, SELFPAY ==
[2025-02-25 01:15] VITALS: BMI 38.1
[2025-03-02 23:23] VITALS: BP 147/87; PULSE 103; PULSE 98; RESP 20; TEMP 36.6; O2SAT 96; BMI 37.9
--- NOTE | 2025-03-02 23:27 | ED.ABDPAIN ---
HPI - Abdominal Pain General Chief Complaint: Nausea/Vomiting/Diarrhea Stated Complaint: SOB, dehydrated, heartburn, v/d Time Seen by Provider: 03/02/25 23:27 History of Present Illness HPI narrative: Patient is a 45-year-old male with a past medical history of diabetes, alcohol abuse, pancreatitis comes into the ED from home for evaluation of multiple complaints, according to the patient he was discharged from here 3 days ago for pancreatitis also with a new diagnosis of diabetes, states that since his discharge he has not felt well, now complaining of some mild, states that he tried herbal remedies without relief, but it is now still complaining of nausea and vomiting diarrhea, states that he was also started on potassium and Related Data Previous Rx's ?Medication ?Instructions ?Recorded amoxicillin 500 mg-potassium 1 tab PO TID #20 tabs 02/28/25 clavulanate 125 mg tablet (Augmentin) blood sugar diagnostic #100 ea 02/28/25 blood-glucose meter (Blood Glucose #1 ea 02/28/25 Monitoring kit) blood-glucose sensor (Dexcom G7 #3 ea 02/28/25 Sensor device) blood-glucose,curb worker,cont #1 ea 02/28/25 (Dexcom G7 Vascular Physician) hydrocodone 5 mg-acetaminophen 325 1 tab PO Q4H PRN Pain, Moderate 02/28/25 mg tablet (4-6) #10 tabs hydrocodone 5 mg-acetaminophen 325 1 tab PO Q6H PRN pain #10 tabs 02/28/25 mg tablet insulin glargine 100 unit/mL (3 15 unit (0.15 mL) SUBCUT BEDTIME 02/28/25 mL) subcutaneous pen (Lantus #15 mL Solostar U-100 Insulin) insulin lispro 100 unit/mL 5 unit (0.05 mL) SUBCUT TID #15 mL 02/28/25 subcutaneous pen (Humalog KwikPen (U-100) Insulin) lancets #100 ea 02/28/25 potassium chloride 20 mEq 20 meq PO BIDWM #6 tabs 02/28/25 tablet,extended release(part/cryst) (Klor-Con M) famotidine 20 mg tablet (Pepcid) 20 mg PO DAILY 1 month #30 tabs 03/03/25 ondansetron 4 mg disintegrating 4 mg PO Q8H PRN nausea and 03/03/25 tablet vomiting 5 days #15 tabs Allergies Allergy/AdvReac Type Severity Reaction Status Date / Time No Known Drug Allergies Allergy Verified 02/24/25 20:53 Patient History Social History household members: none Exam Initial Vital Signs Initial Vital Signs: Vital Signs Temperature 98 F 03/02/25 23:23 Pulse Rate 103 H 03/02/25 23:23 Respiratory Rate 20 03/02/25 23:23 Blood Pressure 147/87 H 03/02/25 23:23 Pulse Oximetry 96 03/02/25 23:23 Oxygen Delivery Method Room Air 03/02/25 23:23 Course Orders Ordered: ED Orders 03/02/25 23:31 XR chest 1V Stat EKG-12 Lead Stat 03/02/25 23:33 Complete Blood Count AUTO DIFF Stat Comprehensive Metabolic Panel Stat ETOH [Ethanol (ETOH)] Stat Lipase Stat Magnesium Stat NT-proBNP (BNP-Adult 18+) Stat PTT Partial Thromboplastin Mark Stat Prothrombin Time INR Stat Triglycerides Stat Troponin & CK Cardiac Panel Stat 03/02/25 23:46 CT angio chest PE protocol Stat 03/03/25 00:39 Urine Microscopic Stat Ondansetron HCl (Ondansetron 4 Mg/2 Ml Inj) 4 mg IV NOW PRN PRN Reason: Nausea And Vomiting Last Admin: 03/02/25 23:44 Dose: 4 mg Documented By: LIZET Discontinued Medications Al Hydrox/Mg Hydrox/Simethicone (Mag Hydrox/Alum/Simeth 30 Ml Udc) 30 ml PO NOW ONE Stop: 03/02/25 23:53 Last Admin: 03/02/25 23:59 Dose: 30 ml Documented By: LIZET Aspirin (Aspirin 81 Mg Chew Tab) 324 mg PO NOW ONE Stop: 03/02/25 23:32 Last Admin: 03/02/25 23:47 Dose: Not Given Documented By: LIZET Famotidine (Famotidine 20 Mg/2 Ml Vial) 20 mg IV NOW ONE Stop: 03/02/25 23:46 Last Admin: 03/02/25 23:58 Dose: 20 mg Documented By: LIZET Sodium Chloride (Normal Saline 0.9%) 1,000 mls @ 1,000 mls/hr IV BOLUS ONE Stop: 03/03/25 00:44 Last Admin: 03/02/25 23:58 Dose: 1,000 mls/hr Documented By: LS Ondansetron HCl (Ondansetron 4 Mg Odt) 4 mg PO NOW PRN PRN Reason: Nausea And Vomiting Vital Signs Vital signs: Vital Signs - 8 hr 03/02/25 23:23 03/02/25 23:23 03/02/25 23:30 Temperature 98 F Pulse Rate 103 H 98 H 95 H Respiratory Rate 20 Blood Pressure 147/87 H Pulse Oximetry 96 96 96 Oxygen Delivery Method Room Air 03/02/25 23:34 03/02/25 23:34 03/03/25 00:00 Temperature Pulse Rate 91 H 89 Respiratory Rate Blood Pressure 152/77 H Pulse Oximetry 96 94 Oxygen Delivery Method 03/03/25 00:01 03/03/25 00:01 03/03/25 00:26 Temperature Pulse Rate 89 Respiratory Rate Blood Pressure 154/75 H 152/72 H Pulse Oximetry 94 Oxygen Delivery Method 03/03/25 00:26 03/03/25 00:30 03/03/25 00:30 Temperature Pulse Rate 89 90 Respiratory Rate 35 H 24 Blood Pressure 124/65 Pulse Oximetry 95 96 Oxygen Delivery Method MDM - Abdominal Pain Differential Diagnosis Differential diagnosis: Likely other (Pancreatitis, ACS, pneumonia, pulmonary embolism, CHF) Lab Data 03/02/25 23:33 03/02/25 23:33 Labs: Lab Results 03/02/25 03/03/25 Range/Units 23:33 00:39 WBC 15.2 H (4.5-11.0) X10^3/uL RBC 4.08 L (4.5-5.9) X10^6/uL Hgb 12.3 L (13.5-17.5) g/dL Hct 35.1 L (41-53) % MCV 86.0 (80-100) fL MCH 30.2 (26-34) PG MCHC 35.1 (30-36) % RDW 13.6 (11.6-14.8) % Plt Count 292 (150-400) X10^3/uL Neut % (Auto) 84.1 H (50-75) % Lymph % (Auto) 8.1 L (25-40) % [place] % (Auto) 6.5 (3-14) % Eos % (Auto) 1.0 L (2-4) % Baso % (Auto) 0.3 (0-2) % Neut # (Auto) 44963 H (4789-2407) /uL Lymph # (Auto) 1200 (1661-3931) /uL [place] # (Auto) 1000 H (0-900) /uL Eos # (Auto) 200 (0-450) /uL Baso # (Auto) 100 (0-100) /uL PT 14.5 H (9.4-12.5) SECONDS INR 1.3 (0.9-1.3) APTT 28 (25.1-36.5) SECONDS Sodium 132 L (137-145) mmol/L Potassium 3.0 L (3.4-5.1) mmol/L Chloride 97 L (98-107) mmol/L Carbon Dioxide 26 (22-32) mmol/L BUN 11 (9-20) mg/dL Creatinine 0.64 L (0.66-1.25) mg/dL Estimated GFR > 60 (>60) mL/min BUN/Creatinine Ratio 17.2 (6-22) Glucose 248 H (70-99) mg/dL Calcium 8.1 L (8.4-10.2) mg/dL Magnesium 1.7 (1.6-2.3) mg/dL Total Bilirubin 0.7 (0.2-1.3) mg/dL AST 40 (17-59) IU/L ALT 49 (<50) IU/L Alkaline Phosphatase 85 (38-126) U/L Total Creatine Kinase 43 L (55-170) U/L Troponin I < 0.012 (0.01-0.034) ng/mL NT-Pro-B Natriuret Pep 618 H (<125) pg/mL Total Protein 6.5 (6.3-8.2) g/dL Albumin 3.3 L (3.5-5.0) g/dL Globulin 3.2 (1.7-4.1) g/dL Albumin/Globulin Ratio 1.0 (1.0-2.8) Lipase 235 D (23-300) U/L Urine RBC None seen (0-5/HPF) Urine WBC None seen (0-5/HPF) Ur Squamous Epith Cells 0-1 /hpf (0-5/HPF) Urine Bacteria None seen (None) Ur Culture Indicated? Cult not indicated Vol Urine Centrifuged 10ml (spun) Point of care testing: Urine Dip Bedside Urine Glucose 1000 mg/dl Bedside Urine Bilirubin - Negative Bedside Urine Ketone +++ 80 Urine Specific [place] 1.010 Bedside Urine Occult Blood - Negative Bedside Urine pH 6.0 Bedside Urine Protein +/- 15 Bedside Urine Urobilinogen - Negative Bedside Urine Nitrite - Negative Bedside Urine Leukocytes - Negative Esterase Imaging Data CTA chest: Radiologist's Impression: [address] [address] [address] Scan Report Signed Patient: Frank Fraser MR#: [id number] : 1980 Acct:[id number] Age/Sex: 45 / M Date of Service: 03/02/25 Loc: ED Accession Number: [id number] Procedure: CT angio chest PE protocol Ordering Provider: Ronald Zhou D.O. PROCEDURE: CT ANGIO CHEST PE PROTOCOL INDICATIONS: Dyspnea with exertion TECHNIQUE: After the administration of intravenous contrast, 2 mm thick sections acquired from the pulmonary apices to the posterior costophrenic angles. 3-dimensional maximum intensity projection (MIP) coronal and sagittal reformats were then acquired through the thorax. For radiation dose reduction, the following was used: automated exposure control, adjustment of mA and/or kV according to patient size. COMPARISON: [facility], CT, CT ABDOMEN PELVIS W CON, 02/24/2025, 22:13. [facility], CT, CT ANGIO CHEST PE PROTOCOL, 02/26/2025, 9:02. FINDINGS: Image quality: Diagnostic. Pulmonary arteries: Pulmonary arteries are normal in size, and demonstrate no intraluminal filling defects to suggest central pulmonary embolism. Lower Neck: No enlarged lymph nodes. Thyroid: No thyroid nodules which require sonographic follow up, per consensus guidelines. Axillae: No enlarged lymph nodes. Chest Wall: Unremarkable. Bones: Unremarkable. Lungs and Pleura: Bilateral effusions with superimposed consolidations. Heart: Heart size is normal. No pericardial effusion. Thoracic Vessels: No aortic aneurysm. Mediastinum and Marya: No enlarged lymph nodes. Esophagus: No wall thickening. Mild hiatal hernia. Upper Abdomen: Partially visualized pancreas with marked inflammation. This appears more progressive compared to 02/24/2025. It is not visualized in its entirety. IMPRESSION: No pulmonary embolus. Mild bilateral effusions with superimposed opacities. The latter may represent atelectasis versus pneumonia. Incompletely visualized pancreas with marked inflammatory change appearing progressive compared to pancreatitis on prior exam. Follow-up CT abdomen pelvis is recommended for additional evaluation. ECG Data Interpretation: EKG interpreted ED physician sinus at 88 beats per minute QTC 421 left axis deviation nonspecific ST changes no STEMI MDM Narrative Medical decision making narrative: Patient is a 45-year-old male with past medical history of alcohol abuse, pancreatitis, new onset diabetes, comes into the ED from home for multiple complaints. States that he was seen here discharge for acute pancreatitis, states that he was discharged home with a potassium in antibiotics, however he states that he is presenting due to persistent nausea and vomiting diarrhea as well as shortness of breath with heartburn. Patient states that he has been having shortness of breath ongoing persistent since even before he came into the emergency department a few days ago. States that he feels like it is worse with exertion but denies any actual chest pain. He states that his nausea and vomiting has improved but due to the persistence of the nausea and vomiting feels like everything is ?getting stacked on each other. Review of records show that patient was here with acute pancreatitis related to hypertriglyceridemia was treated with IV insulin, also alcohol withdrawal and new onset diabetes, patient was also treated with IV antibiotics for possible sepsis, was discharged home on oral Augmentin due to and a known cause of fever. He was also discharged home on potassium Patient's lab work showing improvement of his leukocytosis, 2 days ago was 15.9, today is 15.2, patient's lipase 235, BNP 618, patient had CTA of chest showing possible pneumonia versus atelectasis, patient is not requiring any supplemental oxygen, patient has already been discharged home with antibiotics, informed patient to continue taking this, he we will also be discharged home with antinausea meds as well as PPI for continued evaluation treatment of his symptoms. Patient verbalized understanding of this and agrees to being discharged home with outpatient follow up Discharge Plan Departure Patient Disposition: Home Clinical Impression: Pneumonia Instructions: DI for Pneumonia -- Adult Activity Restrictions/Additional Instructions: Please continue taking your antibiotics as prescribed, please start taking a probiotic with your antibiotic Please read the discharge instructions sheet carefully and bring all papers to all doctor follow-up visits, as it may contain information that your doctor may want to see. Disease processes change and evolve, if your symptoms worsen or if you develop any new symptoms that are concerning to you please return for evaluation. Your evaluation today does not show any evidence of any life-threatening/serious illnesses requiring admission to the hospital or surgery. Please follow-up with your doctor for re-evaluation in approximately 1 day. Seek immediate medical attention for any worrisome symptoms. *If you do not have a primary care provider please contact the [facility] Resource line at [phone]. They will ask some questions about your medical history and help get you set up with a doctor in the community. Prescriptions: New ondansetron 4 mg tablet,disintegrating 4 mg PO Q8H PRN (Reason: nausea and vomiting) 5 Days Qty: 15 0RF famotidine [Pepcid] 20 mg tablet 20 mg PO DAILY 30 Days Qty: 30 0RF No Action hydrocodone-acetaminophen 5-325 mg Tablet 1 tab PO Q4H PRN (Reason: Pain, Moderate (4-6)) Qty: 10 0RF potassium chloride [Klor-Con M20] 20 mEq Tablet,Er Particles/Crystals 20 meq PO BIDWM Qty: 6 0RF insulin glargine [Lantus Solostar U-100 Insulin] 100 unit/mL (3 mL) Insulin Pen 15 unit SUBCUT BEDTIME Qty: 15 0RF amoxicillin-pot clavulanate [Augmentin] 500-125 mg tablet 1 tab PO TID Qty: 20 0RF insulin lispro [Humalog KwikPen Insulin] 100 unit/mL insulin pen 5 unit SUBCUT TID Qty: 15 0RF (DME) Dexcom G7 Vascular Physician Misc See Rx Instructions .Route Qty: 1 0RF Rx Instructions: As directed (DME) Dexcom G7 Sensor Device See Rx Instructions .Route Qty: 3 0RF Rx Instructions: As directed (DME) blood sugar diagnostic Strip See Rx Instructions .Route Qty: 100 0RF Rx Instructions: As directed test 3 times a day (DME) lancets Misc See Rx Instructions .Route Qty: 100 0RF Rx Instructions: As directed (DME) blood-glucose meter [Blood Glucose Monitoring] Kit See Rx Instructions .Route Qty: 1 0RF Rx Instructions: As directed hydrocodone-acetaminophen 5-325 mg tablet 1 tab PO Q6H PRN (Reason: pain) Qty: 10 0RF Stand Alone Forms: Patient Portal/API
[2025-03-02 23:30] VITALS: PULSE 95; O2SAT 96
--- NOTE | 2025-03-02 23:31 | DI.RAD.S_ITS ---
PROCEDURE: XR CHEST 1V INDICATIONS: Chest Pain, heartburn-like symptoms, V/D TECHNIQUE: One view of the chest was acquired. COMPARISON: [facility], CT, CT ANGIO CHEST PE PROTOCOL, 03/03/2025, 0:03. [facility], CR, XR CHEST 1V, 02/24/2025, 21:49. FINDINGS: Surgical changes and devices: None. Lungs and pleura: Bilateral effusions with patchy basilar opacities. Mediastinum: Mediastinal contours appear normal. Heart size is normal. Bones and chest wall: No suspicious bony lesions. Overlying soft tissues appear unremarkable. IMPRESSION: Bilateral effusions. Bibasilar opacities are present which may represent atelectasis. Cannot exclude pneumonia. Dictated by: Stephanie Redding M.D. on 03/03/2025 at 1:04 Approved by: Stephanie Redding M.D. on 03/03/2025 at 1:05
[2025-03-02 23:34] VITALS: BP 152/77; PULSE 91; O2SAT 96
[2025-03-02 23:42] LABS: Add Manual Diff / Slide Review NO; Hematocrit 35.1 % (41-53); Hemoglobin 12.3 g/dL (13.5-17.5); Lymphocytes Absolute Auto 1200 /uL (1100-4500); Mean Corpuscular HGB Conc 35.1 % (30-36); Mean Corpuscular Hemoglobin 30.2 PG (26-34); Mean Corpuscular Volume 86.0 fL (80-100); Platelet Count 292 X10^3/uL (150-400)
[2025-03-02] MEDS: ONDANSETRON 4 MG/2 ML INJ IV (23:44)
--- NOTE | 2025-03-02 23:46 | DI.CT.S_ITS ---
PROCEDURE: CT ANGIO CHEST PE PROTOCOL INDICATIONS: Dyspnea with exertion TECHNIQUE: After the administration of intravenous contrast, 2 mm thick sections acquired from the pulmonary apices to the posterior costophrenic angles. 3-dimensional maximum intensity projection (MIP) coronal and sagittal reformats were then acquired through the thorax. For radiation dose reduction, the following was used: automated exposure control, adjustment of mA and/or kV according to patient size. COMPARISON: [facility], CT, CT ABDOMEN PELVIS W CON, 02/24/2025, 22:13. [facility], CT, CT ANGIO CHEST PE PROTOCOL, 02/26/2025, 9:02. FINDINGS: Image quality: Diagnostic. Pulmonary arteries: Pulmonary arteries are normal in size, and demonstrate no intraluminal filling defects to suggest central pulmonary embolism. Lower Neck: No enlarged lymph nodes. Thyroid: No thyroid nodules which require sonographic follow up, per consensus guidelines. Axillae: No enlarged lymph nodes. Chest Wall: Unremarkable. Bones: Unremarkable. Lungs and Pleura: Bilateral effusions with superimposed consolidations. Heart: Heart size is normal. No pericardial effusion. Thoracic Vessels: No aortic aneurysm. Mediastinum and Marya: No enlarged lymph nodes. Esophagus: No wall thickening. Mild hiatal hernia. Upper Abdomen: Partially visualized pancreas with marked inflammation. This appears more progressive compared to 02/24/2025. It is not visualized in its entirety. IMPRESSION: No pulmonary embolus. Mild bilateral effusions with superimposed opacities. The latter may represent atelectasis versus pneumonia. Incompletely visualized pancreas with marked inflammatory change appearing progressive compared to pancreatitis on prior exam. Follow-up CT abdomen pelvis is recommended for additional evaluation. Dictated by: Stephanie Redding M.D. on 03/03/2025 at 0:27 Approved by: Stephanie Redding M.D. on 03/03/2025 at 0:29
[2025-03-02 23:48] LABS: INR 1.3 (0.9-1.3); Prothrombin Time 14.5 SECONDS (9.4-12.5)
--- NOTE | 2025-03-02 23:48 | EKG_ITS ---
[place] [id number] [place] [id number] Test Date: 2025-03-02 Pat Name: Frank Fraser Department: [facility] Room: Gender: Male Sample Patternmaker: IFEOMA : 1980 Requested By: Order Number: [id number] Reading MD: Vitor Chahal MD Measurements Intervals [place] Rate: 88 P: 34 PA: 162 QRS: -20 QRSD: 88 T: 13 QT: 348 QTc: 421 Interpretive Statements Normal sinus rhythm Minimal voltage criteria for LVH, may be normal variant ( R in aVL ) Electronically Signed On 03-03-2025 7:32:48 PDT by Vitor Chahal MD
[2025-03-02 23:51] LABS: PTT Partial Thromboplastin Tim 28 SECONDS (25.1-36.5)
[2025-03-02 23:54] LABS: Alanine Aminotransferase 49 IU/L (<50); Albumin 3.3 g/dL (3.5-5.0); Albumin Globulin Ratio 1.0 (1.0-2.8); Alkaline Phosphatase 85 U/L (38-126); Blood Urea Nitrogen 11 mg/dL (9-20); Calcium 8.1 mg/dL (8.4-10.2); Carbon Dioxide 26 mmol/L (22-32); Chloride 97 mmol/L (98-107); Creatine Kinase 43 U/L (55-170); Estimated Glomerular Filt Rate > 60 mL/min (>60); Globulin 3.2 g/dL (1.7-4.1); Glucose 248 mg/dL (70-99); HEMOLYSIS < 15 (0-50); Lipase 235 U/L (23-300); Magnesium 1.7 mg/dL (1.6-2.3); Potassium 3.0 mmol/L (3.4-5.1); Sodium 132 mmol/L (137-145); Total Protein 6.5 g/dL (6.3-8.2)
[2025-03-02] MEDS: SODIUM CHLORIDE 0.9% 1,000 ML 1000 ML IV (23:58)
[2025-03-02] MEDS: FAMOTIDINE 20 MG/2 ML VIAL IV (23:58)
[2025-03-02] MEDS: MAG HYDROX/ALUM/SIMETH 30 ML UDC PO (23:59)
[2025-03-03] VITALS: PULSE 89; O2SAT 94
[2025-03-03 00:01] VITALS: BP 154/75; PULSE 89; O2SAT 94
[2025-03-03 00:05] LABS: NT-proBNP (BNP-Adult 18+) 618 pg/mL (<125); Troponin I < 0.012 ng/mL (0.01-0.034)
--- NOTE | 2025-03-03 00:07 | PC.NURSE ---
Pt to imaging via wheelchair with angiography technologist
[2025-03-03 00:26] VITALS: BP 152/72; PULSE 89; RESP 35; O2SAT 95
[2025-03-03 00:30] VITALS: BP 124/65; PULSE 90; RESP 24; O2SAT 96
[2025-03-03 00:55] LABS: Culture Indicated Urine Cult Not Indicated
[2025-03-03 01:00] VITALS: BP 143/68; PULSE 80; RESP 27; O2SAT 95
[2025-03-03 01:04] LABS: Ethanol (ETOH) < 10 mg/dL (<10); Triglycerides 257 mg/dL (35-150)
== END 2025-03-03 01:11 | disposition home or self-care (01) ==
PROVIDERS: Emergency Provider Student in an Organized Health Care Education/Training Program
DX: J18.9 Pneumonia, unspecified organism (principal)
CPT/HCPCS: 71045; 71275; 80053; 80320; 81003; 81015; 82550; 83690; 83735; 83880; 84478; 84484; 85025; 85610; 85730; 93005; 93010; 96374; 96375; 99284; J2405; Q9967